=== PATIENT | female | born 1975 | race African-American/Black ===

== ENCOUNTER 2024-07-29 02:13 | Inpatient (IN) | payer OTHER, SELFPAY ==
[2024-07-28 20:38] VITALS: BP 168/102
[2024-07-28 20:44] VITALS: BP 145/76
[2024-07-28 20:49] VITALS: BMI 29.6
[2024-07-28 20:51] VITALS: BP 142/91
[2024-07-28 20:52] LABS: Glucose - Point of Care 155 mg/dl (70-99)
[2024-07-28 20:58] LABS: % Basophils 0.6 % (0-2); % Eosinophils 0.5 % (0-6); % Immature Granulocytes 0.5 % (0-0.5); % Lymphocytes 34.4 % (20.5-51.1); % Monocytes 7.4 % (1.7-9.3); % Neutrophils 56.6 % (42.2-75.2); Absolute Basophils 0.1 10^3/uL (0-0.2); Absolute Lymphocytes 2.7 10^3/uL (1.2-3.4); Absolute Monocytes 0.6 10^3/uL (0.1-0.6); Absolute Neutrophils 4.4 10^3/uL (1.4-6.5); Hematocrit 41.7 % (37.0-47.0); Hemoglobin 13.9 g/dL (12.0-16.0); Mean Corp Hgb Conc. 33.3 g/dL (33.0-37.0); Mean Corpuscular Volume 89.9 fL (81.0-99.0); Mean Platelet Volume 9.6 fL (7.4-10.4); Nucleated Red Blood Cells % 0 %; Platelet Count 219 10^3/uL (130-400); Red Blood Cell Count 4.64 10^6/uL (4.20-5.40); Red Cell Dist. Width 14.7 % (11.5-14.5); White Blood Cell Count 7.8 10^3/uL (4.8-10.8)
[2024-07-28 21:14] LABS: ALT (SGPT) 49 U/L (0-35); AST (SGOT) 40 U/L (14-36); Albumin 4.3 g/dl (3.5-5.0); Alkaline Phosphatase 90 U/L (38-126); Blood Urea Nitrogen 11 mg/dl (7-17); Calcium 8.5 mg/dl (8.4-10.2); Carbon Dioxide 23 mmol/L (22-30); Chloride 100 mmol/L (98-107); Estimated Creatinine Clearance 113 ml/min; Glucose 153 mg/dl (70-99); Magnesium 1.5 mg/dl (1.6-2.3); Potassium 3.8 mmol/L (3.5-5.1); Sodium 137 mmol/L (135-145); Total Bilirubin 0.1 mg/dl (0.2-1.3); Total Protein 7.1 g/dl (6.3-8.2); eGFR > 60.00
[2024-07-28 21:21] LABS: Troponin I < 0.012 ng/ml
[2024-07-28 21:55] LABS: Amphetamines Negative (Negative); Barbiturates Negative (Negative); Benzodiazepines Negative (Negative); Buprenorphine Negative (Negative); Cocaine Negative (Negative); Marijuana Positive (Negative); Methadone Negative (Negative); Methamphetamines Negative (Negative); Opiates Negative (Negative); Phencyclidine Negative (Negative); Tricyclic Antidepressants Negative (Negative)
[2024-07-28 22:00] VITALS: BP 141/84
[2024-07-28 22:15] LABS: Alcohol 75 mg/dl
[2024-07-28 23:00] VITALS: BP 138/73
--- NOTE | 2024-07-28 23:02 | ED.GENMED ---
History of Present Illness
General
Chief Complaint: Numbness
Source: patient
Exam Limitations: none
Time Seen by Provider: 07/28/24 20:36
History of Present Illness
History of Present Illness:
This a 49-year-old female with a history of hypertension diabetes who presents with bilateral upper extremity numbness. The patient states it also involves her right lower extremity that seems to have resolved patient notes only 5 AM. He states
she just did not feel well called out of work. Symptoms persisted. Friend eventually talked her into calling an ambulance. The patient reports symptoms have been persistent. She does report nausea on arrival to the emergency department. EMS did
perform an EKG. Patient denies vision changes. No headache. No injury. No neck pain. No back pain. Patient admits that she is poorly compliant with her metformin. Patient does admit that on Friday she drank '5 shots of alcohol'. She does
states she probably drinks too much. She did not drink any yesterday.
Past History
Past History
ED Past Medical History: HTN and NIDDM
ED Past Surgical History: Gynecological
Social History
Tobacco: Smoker
Alcohol: Daily
Phy Exam
Physical Exam
Physical Exam:
CONSTITUTIONAL Patient alert and oriented to person, place and time. Well-appearing. Vital signs reviewed.
HEAD atraumatic, normocephalic.
EYES eyelids normal to inspection, Extraocular muscles intact, Conjunctiva normal, Sclera normal.
NECK normal range of motion, Trachea midline, no jugular venous distention.
RESPIRATORY CHEST No respiratory distress noted, Chest expansion equal, Bilateral breath sounds clear.
CARDIOVASCULAR regular rate and rhythm, Heart sounds normal.
ABDOMEN abdomen nontender, Bowel sounds normal. No distention.
BACK normal inspection, no obvious deformities
UPPER EXTREMITY range of motion normal, Motor strength normal, no cyanosis, no edema.
LOWER EXTREMITY range of motion normal, Motor strength normal, no cyanosis, no edema.
NEURO Speech normal, No focal motor deficits, [place] coma scale 15, Memory normal, Cranial Nerves intact to screening exam. No pronator drift. Normal [id number].
SKIN skin warm, dry, and normal in color.
Course
Orders/Labs/Results
Orders:
Orders
07/28/24 20:40
Electrocardiogram (*1) Urgent
Reason for Study: Other
Other Reason for Exam: numbness
EKG- Treatment ONCE
07/28/24 20:43
Cardiac Monitoring- Treatment ONCE
07/28/24 20:44
CT Head W/o Iv Contrast Urgent
Comment:
Reason For Exam: R sided numbness
07/28/24 20:50
Alcohol Urgent
Complete Blood Count/With Diff Urgent
Comprehensive Metabolic Panel Urgent
Magnesium Urgent
Troponin I Urgent
07/28/24 21:33
Add On- LAB Urgent
Tests Added?: alcohol
07/28/24 21:37
Urine Drug Abuse Screen Urgent
Date Specimen was Collected: 07/28/24
Time Specimen was Collected: 21:34
Abnormal Lab Results
07/28/24 07/28/24 07/28/24
20:42 20:50 21:37
RDW 14.7 H %
(11.5-14.5)
Creatinine 0.5 L mg/dL
(0.6-1.0)
Glucose 153 H mg/dl
(70-99)
Magnesium 1.5 L mg/dl
(1.6-2.3)
Total Bilirubin 0.1 L mg/dl
(0.2-1.3)
AST 40 H U/L
(14-36)
ALT 49 H U/L
(0-35)
U Marijuana (THC) Screen Positive H
(Negative)
POC Glucose 155 H mg/dl
(70-99)
07/28/24 20:50
07/28/24 20:50
Vital Signs
Initial and Last Documented VS:
Initial Vital Signs
Temp Pulse Resp BP Pulse Ox
99.4 F 87 22 168/102 94
07/28/24 20:38 07/28/24 20:38 07/28/24 20:38 07/28/24 20:38 07/28/24 20:38
Last Documented Vital Signs
Temp Pulse Resp BP Pulse Ox
99.4 F 88 17 141/84 97
07/28/24 20:38 07/28/24 22:45 07/28/24 22:45 07/28/24 22:00 07/28/24 22:45
MDM/Problems Addressed
Differential Diagnosis Includes:
Acute CVA, MS, electrolyte disturbance, alcohol withdrawal, alcohol ketoacidosis
MDM/Problems Addressed:
Sensory changes, numbness, abnormal CT scan, hypomagnesemia, alcohol abuse
*Radiology
Radiology exam reviewed: radiology read reviewed
*Pulse Oximetry
Patient hypoxic: no
*EKG
Interpreted by ED Provider?: Yes
Interpretation: normal
Rate: normal
Rhythm: sinus
[place]: normal axis
Interval: normal interval
Ischemia: no ischemia
*[place]itch[place] Breaker Interpretation
Rate: normal
Interpretation: normal
Rhythm: sinus
*Critical Care Note
Total Time (30-74mins, 75-104mins- exclusive of procedures): 30-minute
Data Reviewed
Source: patient
Prescriptions/Medications Considered But Not Given:
Consider TNK patient has bilateral symptoms symptoms started at 5 AM
Patient Management
Discussion with other providers: Hospitalist and Work Checker (Case discussed with neurology. Recommends MRI and admission in light of CT findings)
Escalation/DeEscalation of care consider admission/obs:
49-year-old female presents bilateral upper extremity numbness. On reassessment she feels like is a little more in her right upper extremity. She has not motor exam. She does admit to drinking too much alcohol and drank a lot on Friday. CT noted
with changes. Case discussed with neurology. Given the bilateral nature of her symptoms I do not suspect CVA. Demyelinating disorder could be on the differential. Also possible to be related to her alcohol use. Treat with banana bag. Neurology
recommends admission and MRI
ED Attending Note
-
Portions of this chart may have been created with voice recognition software.� Occasional wrong word or��sound alike� substitutions may have occurred due to the inherent limitations of voice recognition software.
Discharge Plan
Departure
Patient Disposition: Admit
Date of Disposition: 07/28/24
Time of Disposition: 23:20
Admit to: Telemetry
Presentation/result/management discussed w/ accepting MD/DO: Hospitalist
Discharge Problem:
Alcohol abuse, Numbness, Abnormal CT of brain, Hypomagnesemia
Referrals:
NONE,* [Family Provider] -
Interventions
Interventions:
*General Assessment Last Done: 07/28/24 20:47
ED- Fall Risk Assessment Last Done: 07/28/24 21:51
*ED COVID-19 Vaccine History Last Done: 07/28/24 20:47
ED- Neurological Assessment Last Done: 07/28/24 21:51
Discharge Date and Time
Print Language: OCCITAN
[2024-07-29] VITALS (9 sets, daily range): BP systolic 115–159; BP diastolic 79–93; PULSE 81–96; BMI 28.1
[2024-07-29] MEDS: MULTIVITAMIN 1015 MG IV (00:06)
[2024-07-29] MEDS: MULTIVITAMIN 1015 ML IV (00:06)
[2024-07-29] MEDS: MULTIVITAMIN 1015 GRAMS IV (00:06)
[2024-07-29] MEDS: LOW STRENGTH ASPIRIN 81 MG PO ×2 (00:07→07:49)
--- NOTE | 2024-07-29 02:04 | HPS.HSE ---
Family Physician
-
Family Physician: * NONE
Chief Complaint
-
Paresthesias
History of Present Illness
Patient is a 49y F with PMH significant for hypertension, DM-II and non-compliance who presents to ED complaining of RUE numbness since this AM. Patient states that she felt well yesterday when she went to bed. She woke this Am with numbness
and tingling sensation in the RUE from the shoulder to the hand. The hand has remained numb with occasional 'episodes' of shooting tingling down the outside of the R arm. Patient denies any associated headache, vision changes, speech abnormality.
She denies any specific weakness or clumsiness. She noted some similar numbness in the L hand while here in the ED - but this as brief and has not recurred.
Patient denies any prior history of similar symptoms.
She has prior diagnoses of diabetes and hypertension; however, she does not take her prescribed metformin and telmisartan.
Patient also admits to alcohol use disorder. She states that she drinks 'too much' - estimating about 5-6 drinks per day. Her last drink was Friday.
Medical History
Past Medical History
Past Medical History: Reports Other
Additional Past Medical History:
Hypertension
DM-II
Past Surgical History: Reports Other
Additional Past Surgical History:
Partial Hysterectomy
Social History
Tobacco: Smoker (1/2 ppd)
Alcohol: Daily (5-6 drinks daily. Last drink Friday.)
Drug: Other (Occasional THC edible.)
Family History
Family History: Not pertinent
Allergies / Home Medications
Allergies reflects when Allergies were last updated in [facility].
Home Medications with original date entered in [facility]
Allergy/Medication List:
Allergies
Allergy/AdvReac Type Severity Reaction Status Date / Time
No Known Allergies Allergy Verified 07/28/24 20:38
Home Medications
No Meds [No Current Medications] 07/28/24
Review of Systems
-
History Source: Patient
A 12 point ROS was completed and negative except as noted: Yes
Constitutional: Denies Fever or Chills
EENT: Denies Sore Throat
Respiratory: Denies Cough or Trouble Breathing
Cardiac: Denies Chest Pain or Palpitations
Abdomen/GI: Denies Abdominal Pain, Nausea, Vomiting or Diarrhea
: Denies Dysuria or Frequency
Musculoskeletal: Denies Joint Pain or Edema
Neurological: Reports Numbness; Denies Dizzy, Headache or Weakness
Psych: Denies Depression or Anxiety
Physical Exam
Vital Signs
Vital Signs
Temp Pulse Resp BP Pulse Ox
98.1 F 85 20 128/80 95
07/28/24 23:50 07/29/24 01:33 07/29/24 01:33 07/29/24 01:00 07/29/24 01:15
Physical Exam
General: Other (49y F in no acute distress.)
HEENT: Moist mucous membranes and PERRLA
Respiratory: Clear; No Wheezes, Rales or Rhonchi
Cardiac: S1/S2 and Regular Rhythm; No Murmur
GI: Soft, Non Tender, Non Distended and Normal Bowel Sounds
Musculoskeletal: No Clubbing, No Cyanosis and No Edema
Neuro: AO x 3 and Other (Strength is intact and symmetric. No evident sensory deficit in the RUE.)
Psych: Anxious
Laboratory Results
-
07/28/24 20:50
07/28/24 20:50
Laboratory Results
Total Bilirubin 0.1 mg/dl (0.2-1.3) L 07/28/24 20:50
AST 40 U/L (14-36) H 07/28/24 20:50
ALT 49 U/L (0-35) H 07/28/24 20:50
Alkaline Phosphatase 90 U/L (38-126) 07/28/24 20:50
Troponin I < 0.012 ng/ml 07/28/24 20:50
Impression/Plan
-
A/P: Patient is a 49y F with PMH significant for hypertension and DM-II who presents to ED complaining of RUE paresthesias since this AM.
RUE Numbness
- Admit for further evaluation and treatment.
- ? CVA / TIA versus neuropathy versus other.
- CT head with minimal periventricular white matter changes - no acute abnormality.
- Follow for changes in neuro exam overnight.
- MRI brain and neck in AM.
- Neurology evaluation for additional recommendations.
- Check lipid panel, A1C, etc.
- ASA daily for now.
Alcohol Use Disorder / Alcohol Withdrawal
- Suspect that patient's symptoms are in large part due to alcohol withdrawal.
- History of use disorder with last drink 24-36 hours ago.
- Anxious and somewhat restless in the ED.
- Follow for further evidence of withdrawal and treat with BZDs PRN.
- Thiamine, folate, MVI replacement.
Benign Hypertension
- BP initially elevated on arrival - but has significantly improved since.
- Follow for now without changes.
- Will likely benefit from med regimen prior to discharge if patient is agreeable.
DM-II
- Non-compliant with prescribed metformin secondary to GI effects.
- Check A1C.
- Consider alternate oral agent for glycemic control.
DVT Prophylaxis: SCDs
Code Status: Full
--- NOTE | 2024-07-29 02:50 | PTCARENOTE ---
Pt received from ED to 414-1. Pt oriented to room and call toussaint.
[2024-07-29 03:13] LABS: Vitamin B12 365 pg/ml (239-931)
[2024-07-29 07:42] LABS: Hematocrit 37.2 % (37.0-47.0); Hemoglobin 12.7 g/dL (12.0-16.0); Mean Corp Hgb Conc. 34.1 g/dL (33.0-37.0); Mean Corpuscular Hgb 30.9 pg (27.0-31.0); Mean Corpuscular Volume 90.5 fL (81.0-99.0); Mean Platelet Volume 10.2 fL (7.4-10.4); Platelet Count 199 10^3/uL (130-400); Red Blood Cell Count 4.11 10^6/uL (4.20-5.40); Red Cell Dist. Width 14.4 % (11.5-14.5); White Blood Cell Count 6.6 10^3/uL (4.8-10.8)
[2024-07-29] MEDS: THIAMINE INJECTION 200 MG IV ×3 (07:48→23:27)
[2024-07-29] MEDS: FOLVITE 1 MG PO (07:49)
[2024-07-29] MEDS: VITAMIN B-12 1000 MCG PO (07:49)
--- NOTE | 2024-07-29 07:56 | CON.NEURO ---
Addendum entered and electronically signed by Mis Stewart MD 07/29/24 09:06:
there is no need in Lipitor given LDL level.
Original Note:
Consultation
Order
Date of Consultation: 07/29/24
Requesting Provider: Ronnie Arrieta DO
Reason for Consult: Alcohol withdrawal, paresthesias
Neurology Consultation Note.
HPI: This is a 49-year-old RH woman who presented to [facility] on 07/28/2022 for with sensory symptoms. According to the patient she developed an acute numbness in the right face and arm/hand that started around 5 AM on 07/28/2024.
The patient states that her face and arm numbness lasted for several seconds however right hand numbness (all digits) has been persistent. The patient states that her right arm felt heavy/' denied and she use her left hand to 'shake'. No reports
of radicular neck pain, headaches, change in vision, abnormal movements, change in speech or language.
Ms. Lyons states that she had a seizure several years ago in settings of electrolyte abnormalities secondary to C. difficile infection had [facility].
ER VS: 168/102, 87�105, febrile.
EKG:NSR, QTc Int : 462 ms
PDMP: none
Labs: Glucose�153, magnesium�1.5, normal WBCs, sodium, platelets, vitamin B12�365, TSH�normal, urine tox�positive for THC, LDL 34, hemoglobin A1c�8.0
CT head wo contrast�subcortical and periventricular bilateral parietal hypodensities.
MAR: ASA 81 mg, hemoglobin 7 mcg, folic acid 1 mg, Mg So4, thiamine IV 200 mg�once
PMH: HTN, DM, nonadherence
PSH: Partial hysterectomy,
SH: Lives with roommate, has a daughter, works as a 'at a local hotel, active smoker, daily alcohol user,
FH: Mother at the age of 74 from a cancer, father at the age of 63 from coronary artery disease.
All:NKDA
ROS:Constitutional: Negative. Negative for chills, fever and unexpected weight change.
HENT: Negative for ear pain, hearing loss, tinnitus and trouble swallowing.
Eyes: Negative. Negative for photophobia, pain and visual disturbance.
Respiratory: Negative for cough, choking and shortness of breath.
Cardiovascular: Negative for chest pain, palpitations and leg swelling.
Gastrointestinal: Negative for abdominal pain and vomiting.
Endocrine: Negative. Negative for cold intolerance.
Genitourinary: Negative for dysuria, flank pain and urgency.
Musculoskeletal: Negative for back pain, gait problem, neck pain and neck stiffness.
Skin: Negative for rash.
Allergic/Immunologic: Negative. Negative for immunocompromised state.
Neurological: Positive for numbness in the right hand
Psychiatric/Behavioral: Negative for behavioral problems, confusion and hallucinations.
General: Well developed. In no acute distress.
Cardio: Regular rate and rhythm without murmur. Extremities are without cyanosis or edema.
Neuro:
Mental Status: Alert, oriented to person, place, and date. Normal attention and recall. Good fund of knowledge. Follows complex requests across the midline. Comprehension, naming, and repetition intact. Immediate and delayed recall 3/3.
Cranial Nerves: . Pupils are equally round and reactive to light. EOMs full. Visual waller full to confrontation. No ptosis. No nystagmus. V1-V3 intact to light touch and pinprick bilaterally, symmetric. Face symmetric. Normal hearing AU.
The palate elevated well. SCMs and traps 5/5. Tongue midline. No dysarthria.
Motor: Normal bulk and tone. No pronator or arm drift. Strength 5/5 throughout. No clonus.
Reflexes: 2+ throughout the upper extremities and knees. Plantar responses flexor bilaterally.
Sensory: Normal pinprick, vibration and JPS.
Coordination: No dysmetria or tremor.
Gait: deferred
Assessment and Plan:
I. Left thalamic syndrome. Differential diagnosis includes vascular versus demyelinating, less likely inflammatory, infectious or neoplastic.
II. EtOH addiction
III. HTN
-Continue Telemetry monitoring.
-Strict glycemic control
-Brain MRI without ute
-TTE with bubble studies
-Continue aspirin 81 mg once a day and start Plavix 75 once a day
-Lipitor 40 mg QHS.
-Nicotine patch
-DVT prophylaxis.
I personally reviewed all radiology and labs along with past medical records pertinent to current medical problems. Total time spent in patient care is 60 minutes.
Thank you for allowing us to participate in the care of this patient. We will continue to follow. Please do not hesitate to contact us with any questions or concerns.
Subjective/Objective
Subjective Data
Date of Service: July 29, 2024
Objective Data
Vital Signs
Temp Pulse Resp BP Pulse Ox
36.8 C 95 18 144/83 97
07/29/24 03:20 07/29/24 02:30 07/29/24 03:20 07/29/24 02:00 07/29/24 03:20
Lab Results
07/29/24 06:22
Sodium 137 mmol/L (135-145) 07/28/24 20:50
Potassium 3.8 mmol/L (3.5-5.1) 07/28/24 20:50
BUN 11 mg/dl (7-17) 07/28/24 20:50
Glucose 153 mg/dl (70-99) H 07/28/24 20:50
Calcium 8.5 mg/dl (8.4-10.2) 07/28/24 20:50
Vitamin B12 365 pg/ml (239-931) 07/28/24 20:50
Ur Buprenorphine Negative (Negative) 07/28/24 21:37
Patient Allergies
No Known Allergies Allergy (Verified 07/28/24 20:38)
Medications
-
Active Medications
Generic Name Dose Route Start Last Admin
Trade Name Freq PRN Reason Stop Dose Admin
Acetaminophen 650 mg 07/29/24 02:50
Acetaminophen 325 Mg Tablet PO 08/26/24 02:49
Q4HPRN PRN
Mild Pain / Temp > 101
Aspirin 81 mg 07/29/24 08:00 07/29/24 07:49
Aspirin 81 Mg Chewable Tablet PO 08/26/24 07:59 81 mg
DAILY ARNIE Administration
Cyanocobalamin 1,000 mcg 07/29/24 08:00 07/29/24 07:49
Cyanocobalamin 1,000 Mcg Tablet PO 08/26/24 07:59 1,000 mcg
DAILY ARNIE Administration
Dextrose 12.5 grams 07/29/24 07:29
Dextrose 50% (0.5 Grams/Ml) 50 Ml Syringe IV 08/26/24 07:28
[id number] PRN
hypoglycemia
Protocol
Folic Acid 1 mg 07/29/24 08:00 07/29/24 07:49
Folic Acid 1 Mg Tablet PO 08/26/24 07:59 1 mg
DAILY ARNIE Administration
Glucagon 1 mg 07/29/24 07:29
Glucagon 1 Mg Vial IM 08/26/24 07:28
PRN PRN
hypoglycemia
Protocol
Lactated Ringer's 1,000 mls @ 125 mls/hr 07/29/24 02:50
Lr IV
.Q8H ARNIE
Folic Acid 1 mg/ Sodium 50.2 mls @ 200.8 mls/hr 07/29/24 02:50
Chloride IV 08/26/24 02:49
DAILYPRN PRN
if NPO
Insulin Aspart 0 units 07/29/24 07:30
Insulin Aspart Low Resistance 300 Units/3 Ml Pen.Injctr SC 08/26/24 07:29
AC ARNIE
Protocol
Lorazepam 1 mg 07/29/24 02:50
Lorazepam 1 Mg Tablet PO 08/26/24 02:49
Q2HPRN PRN
MSAS 5-7
Lorazepam 1 mg 07/29/24 02:50
Lorazepam 2 Mg/Ml Vial IV 08/26/24 02:49
Q1HPRN PRN
MSAS 8-11
Lorazepam 2 mg 07/29/24 02:50
Lorazepam 2 Mg/Ml Vial IV 08/26/24 02:49
Q1HPRN PRN
MSAS > 11
Ondansetron HCl 4 mg 07/29/24 02:50
Ondansetron 4 Mg/2 Ml Vial IV 08/26/24 02:49
Q6HPRN PRN
nausea and vomiting
Sodium Chloride 0 flush 07/28/24 23:00
Sodium Chloride 0.9% (Flush) Syringe IV 08/25/24 22:59
PER PROTOCOL ARNIE
Sodium Chloride 0 ml 07/29/24 02:50
Sodium Chloride 0.9% (Preservative Free) 10 Ml Vial IV 08/26/24 02:49
PRN PRN
To dilute IV Ativan
Protocol
Thiamine HCl 200 mg 07/29/24 08:00 07/29/24 07:48
Thiamine (100 Mg/Ml) 2 Ml Vial IV 08/01/24 00:01 200 mg
Q8 ARNIE Administration
Thiamine HCl 100 mg 08/01/24 08:00
Thiamine 100 Mg Tablet PO 08/29/24 07:59
BID ARNIE
Home Medications
�Medication �Instructions �Recorded
No Meds [No Current Medications] 07/28/24
Vital Signs and Labs
-
Vital Signs and Labs:
Vital Signs
Temp Pulse Resp BP Pulse Ox
36.8 C 95 18 144/83 97
07/29/24 03:20 07/29/24 02:30 07/29/24 03:20 07/29/24 02:00 07/29/24 03:20
Lab Results
07/29/24 06:22
Sodium 137 mmol/L (135-145) 07/28/24 20:50
Potassium 3.8 mmol/L (3.5-5.1) 07/28/24 20:50
BUN 11 mg/dl (7-17) 07/28/24 20:50
Glucose 153 mg/dl (70-99) H 07/28/24 20:50
Calcium 8.5 mg/dl (8.4-10.2) 07/28/24 20:50
Vitamin B12 365 pg/ml (239-931) 07/28/24 20:50
Ur Buprenorphine Negative (Negative) 07/28/24 21:37
Medications
-
Medications:
Generic Name Dose Route Start Last Admin
Trade Name Freq PRN Reason Stop Dose Admin
Acetaminophen 650 mg 07/29/24 02:50
Acetaminophen 325 Mg Tablet PO 08/26/24 02:49
Q4HPRN PRN
Mild Pain / Temp > 101
Aspirin 81 mg 07/29/24 08:00 07/29/24 07:49
Aspirin 81 Mg Chewable Tablet PO 08/26/24 07:59 81 mg
DAILY ARNIE Administration
Cyanocobalamin 1,000 mcg 07/29/24 08:00 07/29/24 07:49
Cyanocobalamin 1,000 Mcg Tablet PO 08/26/24 07:59 1,000 mcg
DAILY ARNIE Administration
Dextrose 12.5 grams 07/29/24 07:29
Dextrose 50% (0.5 Grams/Ml) 50 Ml Syringe IV 08/26/24 07:28
[id number] PRN
hypoglycemia
Protocol
Folic Acid 1 mg 07/29/24 08:00 07/29/24 07:49
Folic Acid 1 Mg Tablet PO 08/26/24 07:59 1 mg
DAILY ARNIE Administration
Glucagon 1 mg 07/29/24 07:29
Glucagon 1 Mg Vial IM 08/26/24 07:28
PRN PRN
hypoglycemia
Protocol
Lactated Ringer's 1,000 mls @ 125 mls/hr 07/29/24 02:50
Lr IV
.Q8H ARNIE
Folic Acid 1 mg/ Sodium 50.2 mls @ 200.8 mls/hr 07/29/24 02:50
Chloride IV 08/26/24 02:49
DAILYPRN PRN
if NPO
Insulin Aspart 0 units 07/29/24 07:30
Insulin Aspart Low Resistance 300 Units/3 Ml Pen.Injctr SC 08/26/24 07:29
AC ARNIE
Protocol
Lorazepam 1 mg 07/29/24 02:50
Lorazepam 1 Mg Tablet PO 08/26/24 02:49
Q2HPRN PRN
MSAS 5-7
Lorazepam 1 mg 07/29/24 02:50
Lorazepam 2 Mg/Ml Vial IV 08/26/24 02:49
Q1HPRN PRN
MSAS 8-11
Lorazepam 2 mg 07/29/24 02:50
Lorazepam 2 Mg/Ml Vial IV 08/26/24 02:49
Q1HPRN PRN
MSAS > 11
Ondansetron HCl 4 mg 07/29/24 02:50
Ondansetron 4 Mg/2 Ml Vial IV 08/26/24 02:49
Q6HPRN PRN
nausea and vomiting
Sodium Chloride 0 flush 07/28/24 23:00
Sodium Chloride 0.9% (Flush) Syringe IV 08/25/24 22:59
PER PROTOCOL ARNIE
Sodium Chloride 0 ml 07/29/24 02:50
Sodium Chloride 0.9% (Preservative Free) 10 Ml Vial IV 08/26/24 02:49
PRN PRN
To dilute IV Ativan
Protocol
Thiamine HCl 200 mg 07/29/24 08:00 07/29/24 07:48
Thiamine (100 Mg/Ml) 2 Ml Vial IV 08/01/24 00:01 200 mg
Q8 ARNIE Administration
Thiamine HCl 100 mg 08/01/24 08:00
Thiamine 100 Mg Tablet PO 08/29/24 07:59
BID ARNIE
Home Medications
-
Home Medications
No Meds [No Current Medications] 07/28/24
[2024-07-29 08:02] LABS: Blood Urea Nitrogen 10 mg/dl (7-17); Calcium 7.9 mg/dl (8.4-10.2); Carbon Dioxide 26 mmol/L (22-30); Chloride 100 mmol/L (98-107); Estimated Creatinine Clearance 111 ml/min; Glucose 96 mg/dl (70-99); HDL Cholesterol 108 mg/dl; LDL Cholesterol, Calculated 34 mg/dl; Potassium 3.3 mmol/L (3.5-5.1); Sodium 135 mmol/L (135-145); Total Cholesterol 169 mg/dl (50-199); Triglyceride 135 mg/dl (10-149); Very Low Density Lipoprotein 27 mg/dl (0-30); eGFR > 60.00
[2024-07-29 08:03] LABS: Glucose - Point of Care 109 mg/dl (70-99)
[2024-07-29] MEDS: KCL 40 MEQ PO (08:07)
[2024-07-29] MEDS: NOVOLOG FLEXPEN-LOW RESISTANCE SC (08:12)
[2024-07-29 08:19] LABS: Magnesium 2.1 mg/dl (1.6-2.3); Phosphorus 3.3 mg/dl (2.5-4.5)
[2024-07-29 08:24] LABS: TSH Reflex To Free T4 0.76 uIU/ml (0.47-4.68)
[2024-07-29] MEDS: PLAVIX 75 MG PO (09:06)
[2024-07-29] MEDS: LR 1000 IV (09:06)
--- NOTE | 2024-07-29 11:29 | W.PN.UPDATE ---
Update Note
Progress Note Update
seen and examined independent of overnight physician. Non billable note. states of persistent numbing in RUE. No neck pain. No trauma. No headache. No left upper extremity weakness. No lower extremity weakness. Denies any prior events of
similar symptomology.
General: Other (49y F in no acute distress.)
HEENT: Moist mucous membranes and PERRLA
Respiratory: Clear; No Wheezes, Rales or Rhonchi
Cardiac: S1/S2 and Regular Rhythm; No Murmur
GI: Soft, Non Tender, Non Distended and Normal Bowel Sounds
Musculoskeletal: No Clubbing, No Cyanosis and No Edema
Neuro: AO x 3 and Other (Strength is intact and symmetric. No evident sensory deficit in the RUE.)
Psych: Anxious
A/P: Patient is a 49y F with PMH significant for hypertension and DM-II who presents to ED complaining of RUE paresthesias since this AM.
RUE Numbness
- ? CVA / TIA versus neuropathy due to alcohol abuse versus uncontrolled hypertension versus tobacco abuse versus cervical radiculopathy
- CT head with minimal periventricular white matter changes - no acute abnormality.
- Follow for changes in neuro exam overnight.
- MRI brain and neck in AM.
- Neurology evaluation for additional recommendations.
- ASA and plavix added per neurology.
Alcohol Use Disorder / Alcohol Withdrawal
- History of use disorder with last drink 24-36 hours ago. Alcohol level was elevated on admission. UDS + THC
- Anxious and somewhat restless in the ED.
- Follow for further evidence of withdrawal and treat with BZDs PRN.
- Thiamine, folate, MVI replacement.
Benign Hypertension
- Follow for now without changes.
- Will likely benefit from med regimen PENDING MRI results.
DM-II
- Non-compliant with prescribed metformin secondary to GI effects.
- A1C at 8.1
Tobacco abuse
-smokes a pack in 72h or so.
DVT Prophylaxis: SCDs
Code Status: Full
[2024-07-29 11:50] LABS: Glucose - Point of Care 177 mg/dl (70-99)
[2024-07-29] MEDS: LR IV (12:06)
[2024-07-29] MEDS: NOVOLOG FLEXPEN-LOW RESISTANCE 1 UNITS SC (12:46)
--- NOTE | 2024-07-29 15:13 | CM ---
Pt seen bedside. Initial assessment.
Pt rents a room in a [facility]ST[address]-1 step to enter. Lives w/ landlord. 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
Pt is independent, denies the use of DME for ambulating or daily functioning
Denies SNF/VN/MANAGER CCU hx.
Address and point of contact verified. Pt does not have any insurance at this time. Pt stated she has to figure out how to reinstate her insurance as she was unaware it was inactive.
At this time, pt does not have an assigned PCP
Pharmacy: [facility]
CM discussed D&A per chart states pt drinks daily and disclosure of alcohol use disorder. Pt stated she does not need any support or resources at this time. CM encouraged pt to let CM know if she changes her mind at a later time.
Plan: Home; no needs anticipated
[2024-07-29] MEDS: SOLU-MEDROL 258 MG IV (15:15)
[2024-07-29 16:39] LABS: Erythrocyte Sed Rate 18 mm/hour (0-20)
[2024-07-29 16:46] LABS: Glucose - Point of Care 245 mg/dl (70-99)
[2024-07-29] MEDS: NOVOLOG FLEXPEN-LOW RESISTANCE 2 UNITS SC (16:49)
[2024-07-29 21:18] LABS: Glucose - Point of Care 339 mg/dl (70-99)
[2024-07-30] VITALS (7 sets, daily range): BP systolic 119–157; BP diastolic 71–98; PULSE 68–70
[2024-07-30 07:04] LABS: Glucose - Point of Care 304 mg/dl (70-99)
[2024-07-30] MEDS: NOVOLOG FLEXPEN-LOW RESISTANCE 4 UNITS SC (08:20)
[2024-07-30] MEDS: FOLVITE 1 MG PO (08:21)
[2024-07-30] MEDS: THIAMINE INJECTION 200 MG IV ×3 (08:21→23:54)
[2024-07-30] MEDS: VITAMIN B-12 1000 MCG PO (08:21)
[2024-07-30 08:27] LABS: INR 0.95
[2024-07-30 09:02] LABS: ALT (SGPT) 38 U/L (0-35); AST (SGOT) 23 U/L (14-36); Albumin 4.4 g/dl (3.5-5.0); Alkaline Phosphatase 79 U/L (38-126); Blood Urea Nitrogen 13 mg/dl (7-17); Calcium 9.2 mg/dl (8.4-10.2); Carbon Dioxide 18 mmol/L (22-30); Chloride 97 mmol/L (98-107); Estimated Creatinine Clearance 111 ml/min; Glucose 294 mg/dl (70-99); Magnesium 2.1 mg/dl (1.6-2.3); Potassium 4.9 mmol/L (3.5-5.1); Sodium 131 mmol/L (135-145); Total Bilirubin 0.5 mg/dl (0.2-1.3); Total Protein 7.4 g/dl (6.3-8.2); eGFR > 60.00
--- NOTE | 2024-07-30 09:14 | W.PN.NEURO.1 ---
Today's Communication / Plan
-
.
Subjective/Objective
Subjective Data
Date of Service: July 30, 2024
Neurology follow-up note.
This Eloy reports improvement of her right hand numbness. Blood pressure has been intermittently elevated. No tachycardia. No reports of tremors, headaches or change in vision.
Brain MRI w/wo ute showed nonenhancing periventricular juxtacortical T2/FLAIR hyperintense.
C-spine MRI w/wo ute C3-C4 and C3-C4 level report hyperintensity with subtle enhancement at the level of C3-C4, mild C4-C5, C5-C6 DJD.
Degenerative changes at C4-5 and C5-6 with mild spinal canal stenosis at these levels and jtao-za-[id number] bilateral neural foraminal stenosis at C5-6.
Labs: Glucose�304.
PMH: HTN, DM, nonadherence
PSH: Partial hysterectomy,
SH: Lives with roommate, has a daughter, works as a 'at a [employer], active smoker, daily alcohol user,
FH: Mother at the age of 74 from a cancer, father at the age of 63 from coronary artery disease.
All:NKDA
ROS:Constitutional: Negative. Negative for chills, fever and unexpected weight change.
HENT: Negative for ear pain, hearing loss, tinnitus and trouble swallowing.
Eyes: Negative. Negative for photophobia, pain and visual disturbance.
Respiratory: Negative for cough, choking and shortness of breath.
Cardiovascular: Negative for chest pain, palpitations and leg swelling.
Gastrointestinal: Negative for abdominal pain and vomiting.
Endocrine: Negative. Negative for cold intolerance.
Genitourinary: Negative for dysuria, flank pain and urgency.
Musculoskeletal: Negative for back pain, gait problem, neck pain and neck stiffness.
Skin: Negative for rash.
Allergic/Immunologic: Negative. Negative for immunocompromised state.
Neurological: Positive for numbness in the right hand
Psychiatric/Behavioral: Negative for behavioral problems, confusion and hallucinations.
General: Well developed. In no acute distress.
Cardio: Regular rate and rhythm without murmur. Extremities are without cyanosis or edema.
Neuro:
Mental Status: Alert, oriented to person, place, and date. Normal attention and recall. Good fund of knowledge. Follows complex requests across the midline. Comprehension, naming, and repetition intact. Immediate and delayed recall 3/3.
Cranial Nerves: . Pupils are equally round and reactive to light. EOMs full. Visual waller full to confrontation. No ptosis. No nystagmus. V1-V3 intact to light touch and pinprick bilaterally, symmetric. Face symmetric. Normal hearing AU.
The palate elevated well. SCMs and traps 5/5. Tongue midline. No dysarthria.
Motor: Normal bulk and tone. No pronator or arm drift. Strength 5/5 throughout. No clonus.
Reflexes: 2+ throughout the upper extremities and 0knees. Plantar responses flexor bilaterally. Ladonna's�negative bilateral
Sensory: Normal vibration at the toes.
Coordination: No dysmetria or tremor.
Gait: deferred
Assessment and Plan:
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
II. EtOH addiction
III. HTN
-Continue Telemetry monitoring.
-Strict glycemic control
-D/C steroids
-CSF studies(OCB, MBP)
-MS mimickers
-T-spine MRI with and without gadolinium
-DVT prophylaxis.
I personally reviewed all radiology and labs along with past medical records pertinent to current medical problems. Total time spent in patient care is 35 minutes.
Thank you for allowing us to participate in the care of this patient. We will continue to follow. Please do not hesitate to contact us with any questions or concerns.
Objective Data
Vital Signs
Temp Pulse Resp BP Pulse Ox
36.4 C 71 16 140/80 96
07/30/24 07:00 07/30/24 07:00 07/30/24 07:00 07/30/24 07:00 07/30/24 07:00
Lab Results
07/29/24 06:22
07/30/24 07:14
PT 13.0 Sec (11.4-14.6) 07/30/24 07:32
INR 0.95 07/30/24 07:32
Sodium 131 mmol/L (135-145) L 07/30/24 07:14
Potassium 4.9 mmol/L (3.5-5.1) D 07/30/24 07:14
BUN 13 mg/dl (7-17) 07/30/24 07:14
Glucose 294 mg/dl (70-99) H 07/30/24 07:14
Calcium 9.2 mg/dl (8.4-10.2) 07/30/24 07:14
Phosphorus 3.3 mg/dl (2.5-4.5) 07/29/24 06:22
LDL Cholesterol, Calc 34 mg/dl 07/29/24 06:22
Vitamin B12 365 pg/ml (239-931) 07/28/24 20:50
Ur Buprenorphine Negative (Negative) 07/28/24 21:37
Patient Allergies
No Known Allergies Allergy (Verified 07/28/24 20:38)
Vital Signs and Labs
-
Vital Signs and Labs:
Vital Signs
Temp Pulse Resp BP Pulse Ox
36.4 C 71 16 140/80 96
07/30/24 07:00 07/30/24 07:00 07/30/24 07:00 07/30/24 07:00 07/30/24 07:00
Lab Results
07/29/24 06:22
07/30/24 07:14
PT 13.0 Sec (11.4-14.6) 07/30/24 07:32
INR 0.95 07/30/24 07:32
Sodium 131 mmol/L (135-145) L 07/30/24 07:14
Potassium 4.9 mmol/L (3.5-5.1) D 07/30/24 07:14
BUN 13 mg/dl (7-17) 07/30/24 07:14
Glucose 294 mg/dl (70-99) H 07/30/24 07:14
Calcium 9.2 mg/dl (8.4-10.2) 07/30/24 07:14
Phosphorus 3.3 mg/dl (2.5-4.5) 07/29/24 06:22
LDL Cholesterol, Calc 34 mg/dl 07/29/24 06:22
Vitamin B12 365 pg/ml (239-931) 07/28/24 20:50
Ur Buprenorphine Negative (Negative) 07/28/24 21:37
Medications
-
Medications:
Generic Name Dose Route Start Last Admin
Trade Name Freq PRN Reason Stop Dose Admin
Acetaminophen 650 mg 07/29/24 02:50
Acetaminophen 325 Mg Tablet PO 08/26/24 02:49
Q4HPRN PRN
Mild Pain / Temp > 101
Cyanocobalamin 1,000 mcg 07/29/24 08:00 07/30/24 08:21
Cyanocobalamin 1,000 Mcg Tablet PO 08/26/24 07:59 1,000 mcg
DAILY ARNIE Administration
Dextrose 12.5 grams 07/29/24 07:29
Dextrose 50% (0.5 Grams/Ml) 50 Ml Syringe IV 08/26/24 07:28
[id number] PRN
hypoglycemia
Protocol
Folic Acid 1 mg 07/29/24 08:00 07/30/24 08:21
Folic Acid 1 Mg Tablet PO 08/26/24 07:59 1 mg
DAILY ARNIE Administration
Glucagon 1 mg 07/29/24 07:29
Glucagon 1 Mg Vial IM 08/26/24 07:28
PRN PRN
hypoglycemia
Protocol
Folic Acid 1 mg/ Sodium 50.2 mls @ 200.8 mls/hr 07/29/24 02:50
Chloride IV 08/26/24 02:49
DAILYPRN PRN
if NPO
Insulin Aspart 0 units 07/29/24 07:30 07/30/24 08:20
Insulin Aspart Low Resistance 300 Units/3 Ml Pen.Injctr SC 08/26/24 07:29 4 units
AC ARNIE Administration
Protocol
Lorazepam 1 mg 07/29/24 02:50
Lorazepam 1 Mg Tablet PO 08/26/24 02:49
Q2HPRN PRN
MSAS 5-7
Lorazepam 1 mg 07/29/24 02:50
Lorazepam 2 Mg/Ml Vial IV 08/26/24 02:49
Q1HPRN PRN
MSAS 8-11
Lorazepam 2 mg 07/29/24 02:50
Lorazepam 2 Mg/Ml Vial IV 08/26/24 02:49
Q1HPRN PRN
MSAS > 11
Ondansetron HCl 4 mg 07/29/24 02:50
Ondansetron 4 Mg/2 Ml Vial IV 08/26/24 02:49
Q6HPRN PRN
nausea and vomiting
Sodium Chloride 0 flush 07/28/24 23:00
Sodium Chloride 0.9% (Flush) Syringe IV 08/25/24 22:59
PER PROTOCOL ARNIE
Sodium Chloride 0 ml 07/29/24 02:50
Sodium Chloride 0.9% (Preservative Free) 10 Ml Vial IV 08/26/24 02:49
PRN PRN
To dilute IV Ativan
Protocol
Thiamine HCl 200 mg 07/29/24 08:00 07/30/24 08:21
Thiamine (100 Mg/Ml) 2 Ml Vial IV 08/01/24 00:01 200 mg
Q8 ARNIE Administration
Thiamine HCl 100 mg 08/01/24 08:00
Thiamine 100 Mg Tablet PO 08/29/24 07:59
BID ARNIE
Home Medications
-
Home Medications
No Meds [No Current Medications] 07/28/24
--- NOTE | 2024-07-30 10:41 | PN.CDI ---
CDI
- -
CDI:
Physician Documentation Request
Admit Date: 07/29/24 02:13
Dear Doctor Thomas,
Clinical Indicators:
Patient admitted with RUE numbness and alcohol withdrawal
07/29 KCL 40 meq PO x 1.
Potassium level:
07/29/24
06:22
Potassium 3.3 L
Based on the above, could you clarify in the progress notes, the appropriate diagnosis, if significant, that supports the above abnormalities and additional evaluation, monitoring and/or treatment rendered:
Hypokalemia
Abnormal lab value, clinically insignificant
Other
Use of terms such as suspected, likely, concern for, or probable (associated with a specific diagnosis that is being evaluated, monitored, or treated as if it exists) are acceptable and can be coded in the inpatient setting, when documented at the
time of discharge.
Thank you,
Rhona Garcia RN BSN
CDI Specialist
available via tiger text
Please use your independent medical judgment in providing your response.
--- NOTE | 2024-07-30 11:41 | W.PN.HOSP.TC ---
Today's Communication/Plan
-
start BP meds
Start glipizde
MR thoraic spine
Assessment / Plan
Assessment / Plan
General: Other (49y F in no acute distress.)
HEENT: Moist mucous membranes and PERRLA
Respiratory: Clear; No Wheezes, Rales or Rhonchi
Cardiac: S1/S2 and Regular Rhythm; No Murmur
GI: Soft, Non Tender, Non Distended and Normal Bowel Sounds
Musculoskeletal: No Clubbing, No Cyanosis and No Edema
Neuro: AO x 3 and Other (Strength is intact and symmetric. No evident sensory deficit in the RUE.)
Psych: Anxious
A/P: Patient is a 49y F with PMH significant for hypertension and DM-II who presents to ED complaining of RUE paresthesias since this AM.
RUE Numbness likely secondary to demyelinating disease suspected multiple sclerosis
- CT head with minimal periventricular white matter changes - no acute abnormality.
- Neurology evaluation for additional recommendations.
- ASA and plavix stopped.
- MR C spine showing-STIR hyperintense cervical cord lesions as described, suspicious for multiple sclerosis. Suspect small amount of enhancement of one of the lesions suggesting a component of active disease. Degenerative changes at C4-5 and C5-6
with mild spinal canal stenosis at these levels and fgac-go-tchjzvgh bilateral neural foraminal stenosis at C5-6.
- MR Brain Moderate T2/FLAIR hyperintense foci within the periventricular and deep subcortical white matter in a pattern most in keeping with demyelinating disease/multiple sclerosis. No evidence for active intracranial disease.
- IV steroids stopped per neurology.
- Await MR Thoraic spine
- Await IRAD recs for LP (received asa/plavix yesterday)
Alcohol Use Disorder / Alcohol Withdrawal
- History of use disorder with last drink 24-36 hours ago. Alcohol level was elevated on admission. UDS + THC
- Anxious and somewhat restless in the ED.
- Follow for further evidence of withdrawal and treat with BZDs PRN.
- Thiamine, folate, MVI replacement.
Benign Hypertension
- Follow for now without changes.
- started losartan
DM-II
- Non-compliant with prescribed metformin secondary to GI effects.
- A1C at 8.1. Start low dose glipizide
- Diabetes education
Tobacco abuse
-smokes a pack in 72h or so.
DVT Prophylaxis: SCDs
Code Status: Full
Anticipated Discharge: 24 - 48 hours
Subjective/Interval History
-
Date of Service: July 30, 2024
States remains wtih RUE tingling sensation
She is right handed
Objective Data
-
Labs:
Laboratory Results
07/30/24 07/30/24
07:14 07:32
PT 13.0
INR 0.95
Sodium 131 L
Potassium 4.9 D
Chloride 97 L
Carbon Dioxide 18 L
BUN 13
Creatinine 0.6
Glucose 294 H
Calcium 9.2
Total Bilirubin 0.5
AST 23
ALT 38 H
Alkaline Phosphatase 79
Vital Signs:
Vital Signs
Temp Pulse Resp BP Pulse Ox
97.6 F 71 16 140/80 96
07/30/24 07:00 07/30/24 07:00 07/30/24 07:00 07/30/24 07:00 07/30/24 07:00
I&O
07/29/24 07/30/24 07/31/24
06:59 06:59 06:59
Intake Total 840 / 840 2459 / 2459
Balance 840 / 840 2459 / 2459
Data Reviewed
-
Total Time Spent with Patient (in minutes): 55
[2024-07-30 12:19] LABS: Glucose - Point of Care 228 mg/dl (70-99)
[2024-07-30] MEDS: NOVOLOG FLEXPEN-LOW RESISTANCE 2 UNITS SC (12:45)
[2024-07-30] MEDS: COZAAR 25 MG PO (12:45)
--- NOTE | 2024-07-30 15:20 | PTCARENOTE ---
Benita verbalized she has had type 2 diabetes for the past year and was started on Metformin. She had persistent GI side effects and discontinued the medication on her own. She also left her primary care doctor who prescribed the Metformin. She
verbalized she has not had any formal diabetes education but both her parents had type 2 diabetes. We reviewed her goal for the hemolgobin A1c and reinforced importance of keeping blood sugars under control. I discussed nutrition and exercise and
encouraged her to attend the outpatient DSME program and gave her a flyer with contact information. Benita was started on steroids for 1 day since being admitted but since have been discontinued. Plan is for her to start Glipizide 2.5 mg twice daily.
I reviewed the action of the medication as well as potential low blood sugar recognition and treatment. Benita demonstrated how to check a fingerstick and we reviewed a monitoring schedule. She will reach out to the office for further assistance if
needed.
[2024-07-30 16:37] LABS: Glucose - Point of Care 264 mg/dl (70-99)
[2024-07-30] MEDS: NOVOLOG FLEXPEN-LOW RESISTANCE 3 UNITS SC (18:16)
[2024-07-30] MEDS: GLUCOTROL 2.5 MG PO (18:38)
[2024-07-30 21:32] LABS: Glucose - Point of Care 256 mg/dl (70-99)
[2024-07-31 03:43] VITALS: BP 99/57
[2024-07-31 07:00] VITALS: BP 121/71
[2024-07-31 07:12] LABS: Glucose - Point of Care 186 mg/dl (70-99)
[2024-07-31] MEDS: NOVOLOG FLEXPEN-LOW RESISTANCE 1 UNITS SC (08:06)
[2024-07-31] MEDS: GLUCOTROL 2.5 MG PO ×2 (08:06→16:15)
[2024-07-31] MEDS: COZAAR 25 MG PO (08:07)
[2024-07-31] MEDS: VITAMIN B-12 1000 MCG PO (08:07)
[2024-07-31] MEDS: FOLVITE 1 MG PO (08:07)
[2024-07-31] MEDS: THIAMINE INJECTION 200 MG IV ×3 (08:08→22:28)
--- NOTE | 2024-07-31 08:10 | W.PN.NEURO.1 ---
Addendum entered and electronically signed by Bharat Chicas MD 07/31/24 12:08:
Smoking cessation consulted
Original Note:
Today's Communication / Plan
-
Restart high-dose steroids due to enhancing lesion in the spinal cord and persistent symptomatology,
Check blood work for potential mimics for causes
Aggressive blood pressure control
Lumbar puncture to ensure no mimickers
Goal of normotension
continue B12 replacement
Continue Thiamine
Neuro Assessment/Plan
Assessment
Brain MRI w/wo ute showed nonenhancing periventricular juxtacortical T2/FLAIR hyperintensities.
C-spine MRI w/wo ute subtle enhancement at the level of C3-C4, mild C4-C5
Thoracic spine MRI with and without gadolinium was unremarkable
Assessment:
I. Probable SIGNAL INSPECTOR demyelinating disease
II. EtOH abuse
III. HTN
Low vitamin B12 level
Plan
Restart high-dose steroids due to enhancing lesion in the spinal cord and persistent symptomatology,
Check blood work for potential mimics for causes
Aggressive blood pressure control
Lumbar puncture to ensure no mimickers of multiple sclerosis (an inflammatory process)
Goal of normotension
continue B12 replacement
Continue Thiamine
We will follow.
Subjective/Objective
Subjective Data
Date of Service: July 31, 2024
Improved, continued right hand sensation change.
Objective Data
Vital Signs
Temp Pulse Resp BP Pulse Ox
36.6 C 71 18 99/57 97
07/31/24 03:43 07/31/24 03:43 07/31/24 03:43 07/31/24 03:43 07/31/24 03:43
Lab Results
07/29/24 06:22
07/30/24 07:14
PT 13.0 Sec (11.4-14.6) 07/30/24 07:32
INR 0.95 07/30/24 07:32
Sodium 131 mmol/L (135-145) L 07/30/24 07:14
Potassium 4.9 mmol/L (3.5-5.1) D 07/30/24 07:14
BUN 13 mg/dl (7-17) 07/30/24 07:14
Glucose 294 mg/dl (70-99) H 07/30/24 07:14
Calcium 9.2 mg/dl (8.4-10.2) 07/30/24 07:14
Phosphorus 3.3 mg/dl (2.5-4.5) 07/29/24 06:22
LDL Cholesterol, Calc 34 mg/dl 07/29/24 06:22
Vitamin B12 365 pg/ml (239-931) 07/28/24 20:50
Ur Buprenorphine Negative (Negative) 07/28/24 21:37
Patient Allergies
No Known Allergies Allergy (Verified 07/28/24 20:38)
Review of Systems
-
History Source: Patient
All other systems: Reviewed and negative
EENT: Negative Swallowing Difficulty
Respiratory: Negative Trouble Breathing
Cardiac: Negative Chest Pain
Abdomen/GI: Negative Incontinence of Stool
Genitourinary: Negative Incontinence
Musculoskeletal: Negative Back Pain or Neck Pain
Neuro: Negative Dizzy or Headache
Physical Exam
-
General: No Apparent Distress and Appears Stated Age
Eyes: Round OU, [place] Conjunctivae and No Ptosis
HEENT: Anicteric and Moist Mucous Membranes
Neck: Full Range of Motion
Respiratory: No Dyspnea
Cardiac: No JVD
GI: Non-distended
Skin: Unremarkable
Extremities: No Clubbing, No Cyanosis and No Edema
Psych: Intact Judgement/Insight
Extended Neurological Exam
Mood & Affect: Mood Unremarkable and Affect Unremarkable
Attention Span & Concentration: Awake, Alert, Interactive and No Difficulty with 2 Step Request
Memory: Unremarkable
Tremor: Hand Tremor Absent and Head Tremor Absent
Speech: Quality Unremarkable and Quantity Unremarkable
Cranial Nerve II: Left Eye: Pupillary Size Unremarkable and Visual Calle Grossly Intact
Cranial Nerve II: Right Eye: Pupillary Size Unremarkable and Visual Calle Grossly Intact
Cranial Nerves III, IV, : Extraocular Movement: Extraocular Movement Full in all Directions
Cranial Nerve VII: Facial Symmetry: Normal Facial Symmetry
Cranial Nerve VIII: Hearing: Unremarkable Hearing to Normal Conversational Volume
Cranial Nerve XI: Shoulder Shrug: Unremarkable
Muscle Strength, Overall: Spontaneously Moves
Muscle Bulk & Tone: Bulk Unremarkable and Tone Unremarkable
Pronator Drift: No Drift in Upper Extremities
Touch Sensation: Unremarkable
Coordination: [id number]-[id number] Testing Unremarkable
Data Reviewed
-
MRI Head: Report Reviewed and Image Reviewed
MRI Cervical Spine: Report Reviewed and Image Reviewed
MRI Thoracic Spine: Report Reviewed
Labs: Ordered, Pending and Report Reviewed
Lipid Profile: Report Reviewed
Reviewed with: Physician and Patient
Old Records: Summarized
Past History
Past History
ED Past Medical History: HTN, NIDDM and Other (Demyelinating plaques, low vitamin B12 level)
ED Past Surgical History: Gynecological
Social History
Tobacco: Smoker
Alcohol: Daily
Family History
Family History: Other (reviewed and non-contributory)
Medications
-
Medications:
Generic Name Dose Route Start Last Admin
Trade Name Freq PRN Reason Stop Dose Admin
Acetaminophen 650 mg 07/29/24 02:50
Acetaminophen 325 Mg Tablet PO 08/26/24 02:49
Q4HPRN PRN
Mild Pain / Temp > 101
Cyanocobalamin 1,000 mcg 07/29/24 08:00 07/30/24 08:21
Cyanocobalamin 1,000 Mcg Tablet PO 08/26/24 07:59 1,000 mcg
DAILY ARNIE Administration
Dextrose 12.5 grams 07/29/24 07:29
Dextrose 50% (0.5 Grams/Ml) 50 Ml Syringe IV 08/26/24 07:28
[id number] PRN
hypoglycemia
Protocol
Folic Acid 1 mg 07/29/24 08:00 07/30/24 08:21
Folic Acid 1 Mg Tablet PO 08/26/24 07:59 1 mg
DAILY ARNIE Administration
Glipizide 2.5 mg 07/30/24 17:00 07/30/24 18:38
Glipizide 5 Mg Regular Release Tablet PO 08/27/24 16:59 2.5 mg
BID@0800,1700 ARNIE Administration
Glucagon 1 mg 07/29/24 07:29
Glucagon 1 Mg Vial IM 08/26/24 07:28
PRN PRN
hypoglycemia
Protocol
Folic Acid 1 mg/ Sodium 50.2 mls @ 200.8 mls/hr 07/29/24 02:50
Chloride IV 08/26/24 02:49
DAILYPRN PRN
if NPO
Insulin Aspart 0 units 07/29/24 07:30 07/30/24 18:16
Insulin Aspart Low Resistance 300 Units/3 Ml Pen.Injctr SC 08/26/24 07:29 3 units
AC ARNIE Administration
Protocol
Lorazepam 1 mg 07/29/24 02:50
Lorazepam 1 Mg Tablet PO 08/26/24 02:49
Q2HPRN PRN
MSAS 5-7
Lorazepam 1 mg 07/29/24 02:50
Lorazepam 2 Mg/Ml Vial IV 08/26/24 02:49
Q1HPRN PRN
MSAS 8-11
Lorazepam 2 mg 07/29/24 02:50
Lorazepam 2 Mg/Ml Vial IV 08/26/24 02:49
Q1HPRN PRN
MSAS > 11
Losartan Potassium 25 mg 07/31/24 08:00
Losartan 25 Mg Tablet PO 08/28/24 07:59
DAILY ARNIE
Ondansetron HCl 4 mg 07/29/24 02:50
Ondansetron 4 Mg/2 Ml Vial IV 08/26/24 02:49
Q6HPRN PRN
nausea and vomiting
Sodium Chloride 0 flush 07/28/24 23:00
Sodium Chloride 0.9% (Flush) Syringe IV 08/25/24 22:59
PER PROTOCOL ARNIE
Sodium Chloride 0 ml 07/29/24 02:50
Sodium Chloride 0.9% (Preservative Free) 10 Ml Vial IV 08/26/24 02:49
PRN PRN
To dilute IV Ativan
Protocol
Thiamine HCl 200 mg 07/29/24 08:00 07/30/24 23:54
Thiamine (100 Mg/Ml) 2 Ml Vial IV 08/01/24 00:01 200 mg
Q8 ARNIE Administration
Thiamine HCl 100 mg 08/01/24 08:00
Thiamine 100 Mg Tablet PO 08/29/24 07:59
BID ARNIE
[2024-07-31 11:00] VITALS: BP 118/67; BP 131/83; BP 133/80; PULSE 72; PULSE 75
--- NOTE | 2024-07-31 12:20 | W.PN.HOSP.TC ---
Today's Communication/Plan
-
Pulse dose steroids
Monitor sugars
LP pending
Monitor blood pressure
Continue with rehab evaluation
Assessment / Plan
Assessment / Plan
General: Anxious, sitting in bed,
HEENT: Moist mucous membranes
Respiratory: Clear; No Wheezes, Rales or Rhonchi
Cardiac: S1/S2 and Regular Rhythm; No Murmur
GI: Soft, Non Tender, Non Distended and Normal Bowel Sounds
Musculoskeletal: No Clubbing, No Cyanosis and No Edema
Neuro: AO x 3 and Other (Strength is intact and symmetric. No evident sensory deficit in the RUE.)
Psych: Anxious
A/P: Patient is a 49y F with PMH significant for hypertension and DM-II who presents to ED complaining of RUE paresthesias since this AM.
RUE Numbness likely secondary to demyelinating disease suspected multiple sclerosis
- CT head with minimal periventricular white matter changes - no acute abnormality.
- Neurology evaluation for additional recommendations.
- ASA and plavix stopped.
- MR C spine showing-STIR hyperintense cervical cord lesions as described, suspicious for multiple sclerosis. Suspect small amount of enhancement of one of the lesions suggesting a component of active disease. Degenerative changes at C4-5 and C5-6
with mild spinal canal stenosis at these levels and [id number] bilateral neural foraminal stenosis at C5-6.
- MR Brain Moderate T2/FLAIR hyperintense foci within the periventricular and deep subcortical white matter in a pattern most in keeping with demyelinating disease/multiple sclerosis. No evidence for active intracranial disease.
- Plan to restart and continue via 1 g Solu-Medrol
- MRI thoracic spine negative for demyelinating process
- Await IRAD recs for LP (received asa/plavix yesterday) discussed with Dr. Elias recommending earliest LP can be performed on Friday
Alcohol Use Disorder / Alcohol Withdrawal
- History of use disorder with last drink 24-36 hours ago. Alcohol level was elevated on admission. UDS + THC
- Anxious and somewhat restless in the ED.
- Follow for further evidence of withdrawal and treat with BZDs PRN.
- Thiamine, folate, MVI replacement.
Benign Hypertension
- Follow for now without changes.
- started losartan 25mg with hold parameters
DM-II
- Non-compliant with prescribed metformin secondary to GI effects.
- A1C at 8.1. Start low dose glipizide
- Diabetes education. POC 186
- Monitor sugars and started on high-dose steroids
Tobacco abuse
-smokes a pack in 72h or so.
-counseled on cessation
DVT Prophylaxis: SCDs
Code Status: Full
Anticipated Discharge: > 48 hours
Subjective/Interval History
-
Date of Service: July 31, 2024
States remains with right upper extremity tingling sensation
Patient is anxious about lumbar puncture timing
Objective Data
-
Vital Signs:
Vital Signs
Temp Pulse Resp BP Pulse Ox
98.1 F 68 16 121/71 97
07/31/24 07:00 07/31/24 07:00 07/31/24 07:00 07/31/24 07:00 07/31/24 07:00
I&O
07/30/24 07/31/24 08/01/24
06:59 06:59 06:59
Intake Total 547 / 2458
Balance 2458 / 2458
[2024-07-31 12:42] LABS: Glucose - Point of Care 136 mg/dl (70-99)
[2024-07-31] MEDS: NOVOLOG FLEXPEN-LOW RESISTANCE SC (12:46)
[2024-07-31] MEDS: PEPCID 40 MG PO (13:04)
[2024-07-31] MEDS: SOLU-MEDROL 258 MG IV (13:05)
[2024-07-31 15:04] VITALS: BP 111/71
[2024-07-31 17:01] LABS: Glucose - Point of Care 353 mg/dl (70-99)
[2024-07-31] MEDS: NOVOLOG FLEXPEN-LOW RESISTANCE 5 UNITS SC (17:02)
[2024-07-31 19:53] VITALS: BP 107/67; BP 122/74; BP 123/75; PULSE 64; PULSE 67; PULSE 70
[2024-07-31 21:23] LABS: Glucose - Point of Care 428 mg/dl (70-99)
[2024-07-31 22:17] LABS: Glucose 404 mg/dl (70-99)
[2024-07-31] MEDS: MELATONIN 10 MG PO (22:21)
[2024-07-31] MEDS: NOVOLOG FLEXPEN 6 UNITS SC (22:28)
[2024-07-31 23:22] VITALS: BP 136/71
[2024-08-01] VITALS (7 sets, daily range): BP systolic 106–145; BP diastolic 67–84
[2024-08-01 01:57] LABS: Glucose - Point of Care 268 mg/dl (70-99)
[2024-08-01 02:42] LABS: Angiotensin-1-converting Enzym 44 U/L (16-85)
[2024-08-01 02:52] LABS: ANA, IgG Reflex to HEp-2 Detected (None Detected)
[2024-08-01 07:31] LABS: Myeloperoxidase Antibody 0 AU/mL (0-19); Serine Protease-3, IgG 0 AU/mL (0-19)
[2024-08-01 07:41] LABS: % Basophils 0.1 % (0-2); % Eosinophils 0.1 % (0-6); % Immature Granulocytes 0.6 % (0-0.5); % Monocytes 4.6 % (1.7-9.3); % Neutrophils 77.6 % (42.2-75.2); Absolute Immature Granulocytes 0.1 10^3/uL (0-0.05); Absolute Lymphocytes 1.8 10^3/uL (1.2-3.4); Absolute Monocytes 0.5 10^3/uL (0.1-0.6); Absolute Neutrophils 8.4 10^3/uL (1.4-6.5); Hematocrit 38.7 % (37.0-47.0); Hemoglobin 12.7 g/dL (12.0-16.0); Mean Corp Hgb Conc. 32.8 g/dL (33.0-37.0); Mean Corpuscular Volume 91.3 fL (81.0-99.0); Mean Platelet Volume 10.4 fL (7.4-10.4); Nucleated Red Blood Cells % 0 %; Platelet Count 219 10^3/uL (130-400); Red Blood Cell Count 4.24 10^6/uL (4.20-5.40); Red Cell Dist. Width 14.1 % (11.5-14.5); White Blood Cell Count 10.8 10^3/uL (4.8-10.8)
[2024-08-01 08:02] LABS: Blood Urea Nitrogen 14 mg/dl (7-17); Calcium 9.3 mg/dl (8.4-10.2); Carbon Dioxide 25 mmol/L (22-30); Chloride 100 mmol/L (98-107); Estimated Creatinine Clearance 111 ml/min; Glucose 238 mg/dl (70-99); Potassium 4.5 mmol/L (3.5-5.1); Sodium 133 mmol/L (135-145); eGFR > 60.00
[2024-08-01 08:15] LABS: Glucose - Point of Care 206 mg/dl (70-99)
[2024-08-01] MEDS: SOLU-MEDROL 258 MG IV (08:21)
[2024-08-01] MEDS: COZAAR 25 MG PO (08:22)
[2024-08-01] MEDS: VITAMIN B1 100 MG PO ×2 (08:22→20:39)
[2024-08-01] MEDS: PEPCID 40 MG PO (08:22)
[2024-08-01] MEDS: VITAMIN B-12 1000 MCG PO (08:22)
[2024-08-01] MEDS: FOLVITE 1 MG PO (08:22)
[2024-08-01] MEDS: GLUCOTROL 2.5 MG PO ×2 (08:30→16:08)
[2024-08-01] MEDS: NOVOLOG FLEXPEN-LOW RESISTANCE 2 UNITS SC (08:31)
--- NOTE | 2024-08-01 09:07 | W.PN.NEURO.1 ---
Today's Communication / Plan
-
Continue high-dose steroids due to enhancing lesion in the spinal cord and persistent symptomatology, initial dose was 07/30/2024
Await blood work for potential mimics for causes
Lumbar puncture to ensure no mimickers of multiple sclerosis (an inflammatory process) with appreciation to the consultants of interventional radiology
Neuro Assessment/Plan
Assessment
Brain MRI w/wo ute showed nonenhancing periventricular juxtacortical T2/FLAIR hyperintensities.
C-spine MRI w/wo ute subtle enhancement at the level of C3-C4, mild C4-C5
Thoracic spine MRI with and without gadolinium was unremarkable
Assessment:
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
EtOH abuse
HTN
Low vitamin B12 level
Plan
Continue high-dose steroids due to enhancing lesion in the spinal cord and persistent symptomatology, initial dose was 07/30/2024
Await blood work for potential mimics for causes
Lumbar puncture to ensure no mimickers of multiple sclerosis (an inflammatory process) with appreciation to the consultants of interventional radiology
Goal of normotension
Goal of normoglycemia
continue B12 replacement
Continue Thiamine
We will follow.
Subjective/Objective
Subjective Data
Date of Service: August 01, 2024
80% of normal no issues with alternative side
Objective Data
Vital Signs
Temp Pulse Resp BP Pulse Ox
36.8 C 67 16 135/77 99
08/01/24 07:00 08/01/24 07:00 08/01/24 07:00 08/01/24 07:00 08/01/24 07:00
Lab Results
08/01/24 06:45
08/01/24 06:45
PT 13.0 Sec (11.4-14.6) 07/30/24 07:32
INR 0.95 07/30/24 07:32
Sodium 133 mmol/L (135-145) L 08/01/24 06:45
Potassium 4.5 mmol/L (3.5-5.1) 08/01/24 06:45
BUN 14 mg/dl (7-17) 08/01/24 06:45
Glucose 238 mg/dl (70-99) H 08/01/24 06:45
Calcium 9.3 mg/dl (8.4-10.2) 08/01/24 06:45
Phosphorus 3.3 mg/dl (2.5-4.5) 07/29/24 06:22
LDL Cholesterol, Calc 34 mg/dl 07/29/24 06:22
Vitamin B12 365 pg/ml (239-931) 07/28/24 20:50
Ur Buprenorphine Negative (Negative) 07/28/24 21:37
Patient Allergies
No Known Allergies Allergy (Verified 07/28/24 20:38)
Review of Systems
-
History Source: Patient
All other systems: Reviewed and negative
EENT: Negative Decreased Vision or Swallowing Difficulty
Respiratory: Negative Trouble Breathing
Cardiac: Negative Chest Pain
Abdomen/GI: Negative Incontinence of Stool
Genitourinary: Negative Incontinence
Musculoskeletal: Negative Back Pain or Neck Pain
Neuro: Negative Dizzy or Headache
Physical Exam
-
General: No Apparent Distress and Appears Stated Age
Eyes: Round OU, [place] Conjunctivae and No Ptosis
HEENT: Anicteric and Moist Mucous Membranes
Neck: Full Range of Motion
Respiratory: No Dyspnea
Cardiac: No JVD
GI: Non-distended
Skin: Unremarkable
Extremities: No Clubbing, No Cyanosis and No Edema
Psych: Intact Judgement/Insight
Extended Neurological Exam
Mood & Affect: Mood Unremarkable and Affect Unremarkable
Attention Span & Concentration: Awake, Alert and Interactive
Memory: Unremarkable
Tremor: Hand Tremor Absent and Head Tremor Absent
Speech: Quality Unremarkable and Quantity Unremarkable
Cranial Nerve II: Left Eye: Pupillary Size Unremarkable and Visual Calle Grossly Intact
Cranial Nerve II: Right Eye: Pupillary Size Unremarkable and Visual Calle Grossly Intact
Cranial Nerves III, IV, : Extraocular Movement: Grossly Intact
Cranial Nerve VII: Facial Symmetry: Normal Facial Symmetry
Cranial Nerve VIII: Hearing: Unremarkable Hearing to Normal Conversational Volume
Cranial Nerve XI: Shoulder Shrug: Unremarkable
Muscle Strength, Overall: Spontaneously Moves (All extremities)
Muscle Bulk & Tone: Bulk Unremarkable and Tone Unremarkable
Touch Sensation: Unremarkable
Coordination: [id number]-cyyr-rzldgk Testing Unremarkable
Data Reviewed
-
Labs: Pending and Report Reviewed
Reviewed with: Physician, Patient and Family (via phone)
Old Records: Summarized
Past History
Past History
ED Past Medical History: HTN, NIDDM and Other (Demyelinating plaques, low vitamin B12 level)
ED Past Surgical History: Gynecological
Social History
Tobacco: Smoker
Alcohol: Daily
Living: with family
Family History
Family History: Other (reviewed and non-contributory)
Medications
-
Medications:
Generic Name Dose Route Start Last Admin
Trade Name Freq PRN Reason Stop Dose Admin
Acetaminophen 650 mg 07/29/24 02:50
Acetaminophen 325 Mg Tablet PO 08/26/24 02:49
Q4HPRN PRN
Mild Pain / Temp > 101
Cyanocobalamin 1,000 mcg 07/29/24 08:00 08/01/24 08:22
Cyanocobalamin 1,000 Mcg Tablet PO 08/26/24 07:59 1,000 mcg
DAILY ARNIE Administration
Dextrose 12.5 grams 07/29/24 07:29
Dextrose 50% (0.5 Grams/Ml) 50 Ml Syringe IV 08/26/24 07:28
[id number] PRN
hypoglycemia
Protocol
Famotidine 40 mg 07/31/24 10:00 08/01/24 08:22
Famotidine 40 Mg Tablet PO 08/03/24 08:01 40 mg
DAILY ARNIE Administration
Folic Acid 1 mg 07/29/24 08:00 08/01/24 08:22
Folic Acid 1 Mg Tablet PO 08/26/24 07:59 1 mg
DAILY ARNIE Administration
Glipizide 2.5 mg 07/30/24 17:00 08/01/24 08:30
Glipizide 5 Mg Regular Release Tablet PO 08/27/24 16:59 2.5 mg
BID@0800,1700 ARNIE Administration
Glucagon 1 mg 07/29/24 07:29
Glucagon 1 Mg Vial IM 08/26/24 07:28
PRN PRN
hypoglycemia
Protocol
Folic Acid 1 mg/ Sodium 50.2 mls @ 200.8 mls/hr 07/29/24 02:50
Chloride IV 08/26/24 02:49
DAILYPRN PRN
if NPO
Methylprednisolone Sodium 258 mls @ 258 mls/hr 07/31/24 09:00 08/01/24 08:21
Succinate 1,000 mg/ Sodium IV 08/03/24 09:59 258 mls
Chloride Q24H ARNIE Administration
Insulin Aspart 0 units 07/29/24 07:30 08/01/24 08:31
Insulin Aspart Low Resistance 300 Units/3 Ml Pen.Injctr SC 08/26/24 07:29 2 units
AC ARNIE Administration
Protocol
Lorazepam 1 mg 07/29/24 02:50
Lorazepam 1 Mg Tablet PO 08/26/24 02:49
Q2HPRN PRN
MSAS 5-7
Lorazepam 1 mg 07/29/24 02:50
Lorazepam 2 Mg/Ml Vial IV 08/26/24 02:49
Q1HPRN PRN
MSAS 8-11
Lorazepam 2 mg 07/29/24 02:50
Lorazepam 2 Mg/Ml Vial IV 08/26/24 02:49
Q1HPRN PRN
MSAS > 11
Lorazepam 1 mg 08/02/24 08:00
Lorazepam 1 Mg Tablet PO 08/02/24 23:59
ONCE PRN
LUMBAR PUNCTURE
Losartan Potassium 25 mg 07/31/24 08:00 08/01/24 08:22
Losartan 25 Mg Tablet PO 08/28/24 07:59 25 mg
DAILY ARNIE Administration
Melatonin 10 mg 07/31/24 22:00 07/31/24 22:21
Melatonin 5 Mg Tablet PO 08/28/24 21:59 10 mg
HS ARNIE Administration
Ondansetron HCl 4 mg 07/29/24 02:50
Ondansetron 4 Mg/2 Ml Vial IV 08/26/24 02:49
Q6HPRN PRN
nausea and vomiting
Sodium Chloride 0 flush 07/28/24 23:00
Sodium Chloride 0.9% (Flush) Syringe IV 08/25/24 22:59
PER PROTOCOL ARNIE
Sodium Chloride 0 ml 07/29/24 02:50
Sodium Chloride 0.9% (Preservative Free) 10 Ml Vial IV 08/26/24 02:49
PRN PRN
To dilute IV Ativan
Protocol
Thiamine HCl 100 mg 08/01/24 08:00 08/01/24 08:22
Thiamine 100 Mg Tablet PO 08/29/24 07:59 100 mg
BID ARNIE Administration
--- NOTE | 2024-08-01 11:00 | CM ---
CM reviewed chart, patient seen bedside. Patient denies any needs at this time, previously offered [facility]/resources-patient declined. CM will continue to follow for all discharge planning needs.
Plan; home no needs anticipated, when stable.
[2024-08-01 12:16] LABS: Glucose - Point of Care 257 mg/dl (70-99)
--- NOTE | 2024-08-01 12:26 | W.PN.HOSP.TC ---
Today's Communication/Plan
-
IV steroids-complete course
ISS -high
LP by IRAD pending
PT/OT
Assessment / Plan
Assessment / Plan
General: Anxious, sitting in bed,
HEENT: Moist mucous membranes
Respiratory: Clear; No Wheezes, Rales or Rhonchi
Cardiac: S1/S2 and Regular Rhythm; No Murmur
GI: Soft, Non Tender, Non Distended and Normal Bowel Sounds
Musculoskeletal: No Clubbing, No Cyanosis and No Edema
Neuro: AO x 3 and Other (Strength is intact and symmetric. No evident sensory deficit in the RUE.)
Psych: Anxious
A/P: Patient is a 49y F with PMH significant for hypertension and DM-II who presents to ED complaining of RUE paresthesias since this AM.
RUE Numbness likely secondary to demyelinating disease suspected multiple sclerosis
- CT head with minimal periventricular white matter changes - no acute abnormality.
- Neurology evaluation for additional recommendations.
- ASA and plavix stopped.
- MR C spine showing-STIR hyperintense cervical cord lesions as described, suspicious for multiple sclerosis. Suspect small amount of enhancement of one of the lesions suggesting a component of active disease. Degenerative changes at C4-5 and C5-6
with mild spinal canal stenosis at these levels and [id number] bilateral neural foraminal stenosis at C5-6.
- MR Brain Moderate T2/FLAIR hyperintense foci within the periventricular and deep subcortical white matter in a pattern most in keeping with demyelinating disease/multiple sclerosis. No evidence for active intracranial disease.
- Plan to restart and continue via 1 g Solu-Medrol
- MRI thoracic spine negative for demyelinating process
- Vitamin B12 mildly low and started on supplementation
- Await [facility] recs for LP (received asa/plavix yesterday) discussed with Dr. Elias recommending earliest LP can be performed on Friday
Alcohol Use Disorder / Alcohol Withdrawal
- History of use disorder with last drink 24-36 hours ago. Alcohol level was elevated on admission. UDS + THC
- Anxious and somewhat restless in the ED.
- Follow for further evidence of withdrawal and treat with BZDs PRN.
- Thiamine, folate, MVI replacement.
Benign Hypertension
- Follow for now without changes.
- started losartan 25mg with hold parameters
DM-II
- Non-compliant with prescribed metformin secondary to GI effects.
- A1C at 8.1. Start low dose glipizide
- Diabetes education.
- Monitor sugars and started on high-dose steroids adjust insulin to high-dose sliding scale
Tobacco abuse
-smokes a pack in 72h or so.
-counseled on cessation
Hypokalemia
-replete/monitor
DVT Prophylaxis: SCDs
Code Status: Full
Discussed with family member over the phone in details
PT/OT
Anticipated Discharge: > 48 hours
Subjective/Interval History
-
Date of Service: August 01, 2024
Remains with RUE tingling
Objective Data
-
Labs:
Laboratory Results
08/01/24
06:45
WBC 10.8
Hgb 12.7
Hct 38.7
Plt Count 219
Sodium 133 L
Potassium 4.5
Chloride 100
Carbon Dioxide 25
BUN 14
Creatinine 0.6
Glucose 238 H
Calcium 9.3
Vital Signs:
Vital Signs
Temp Pulse Resp BP Pulse Ox
99.0 F 70 18 130/78 98
08/01/24 11:00 08/01/24 11:00 08/01/24 11:00 08/01/24 11:00 08/01/24 11:00
I&O
07/31/24 08/01/24 08/02/24
06:59 06:59 06:59
Intake Total 1979 2400 / 2400
Balance 1979 2400 / 2400
[2024-08-01] MEDS: NOVOLOG FLEXPEN-LOW RESISTANCE 3 UNITS SC (12:47)
[2024-08-01 16:27] LABS: Glucose - Point of Care 385 mg/dl (70-99)
--- NOTE | 2024-08-01 16:39 | W.PN.UPDATE ---
Addendum entered and electronically signed by Timothy Guzman MD 08/01/24 17:11:
d/w with neurologist-recommending to restart aspirin 81mg.
Original Note:
Update Note
Progress Note Update
Rapid response was called as patient after waking up from sleep was complaining of headache and also worsening of right upper extremity numbing and tingling sensation. Upon my evaluation patient stated she had a headache when she woke up but it has
resolved at this point. Denies any neck pain. Denies any vision problems. Denies any nausea or vomiting. States of right hand numbing and tingling sensation which was the initial symptom on admission. no pain. Able to make fist without any
difficulty. Patient blood pressure was systolic 180 which is down trended to 140s. POC was elevated. EKG with normal sinus rhythm. No acute ST or T wave changes was noted. General in mild acute distress, anxious, crying. Cardiac was S1-S2
regular rate. Lungs are clear to auscultation bilaterally. Neuro awake alert oriented. Right upper extremity numbing tingling subjectively. Motor strength intact. Positive radial and ulnar pulses. No hematoma right wrist right hand noted. No
neck pain on palpation of cervical spine. Check basic labs. Confirm POC on BMP and will adjust insulin. Monitor blood pressure. Check CT of the head. Antianxiety medication as needed. Can try headache cocktail if repeat episode. Monitor blood
pressure. Continue with neurochecks. Cervical MRI was performed earlier in the admission w/Degenerative changes at C4-5 and C5-6 with mild spinal canal stenosis at these levels and [id number]-[id number] bilateral neural foraminal stenosis at C5-6. STIR
hyperintense cervical cord lesions as described, suspicious for multiple sclerosis. Suspect small amount of enhancement of one of the lesions suggesting a component of active disease. Could be due to cervical radiculopathy versus suspected MS
related. Discussed with primary RN.
Total Critical Care Time_ 35 minutes. I was immediately available to the patient and staff. I personally examined, reviewed labs, diagnostic images/reports, interpretations, treatment plans, discussed patient care with other providers and family
or caregivers (if patient is unable to make decisions), entered orders as appropriate and documented the medical record.
--- NOTE | 2024-08-01 16:41 | PTCARENOTE ---
Addendum entered by Mikaela Cordero RN 08/01/24 16:43:
Dr Guzman made aware, rapid response called for further assistance. Md came to bedside, ordered labs and stat head CT. Pt settled down, will continue to monitor for further needs.
Original Note:
At 1630, pt reported severe headache, numbness and spasms of right arm, pt alarmed 160s hr on monitor. Staff went into room, pt's bp 190/92 hr 160s, and sugar 385. EKG shows nsr with nonspecific ST and T wave abnormalities. Repeat bp taken 145/84.
Pt settled down, +
[2024-08-01] MEDS: NOVOLOG FLEXPEN-HIGH RESISTANCE 12 UNITS SC (16:48)
[2024-08-01 16:56] LABS: % Eosinophils 0.5 % (0-6); % Immature Granulocytes 0.4 % (0-0.5); % Lymphocytes 10.2 % (20.5-51.1); % Monocytes 1.8 % (1.7-9.3); % Neutrophils 87.1 % (42.2-75.2); Absolute Eosinophils 0.1 10^3/uL (0-0.7); Absolute Immature Granulocytes 0.1 10^3/uL (0-0.05); Absolute Lymphocytes 1.1 10^3/uL (1.2-3.4); Absolute Monocytes 0.2 10^3/uL (0.1-0.6); Absolute Neutrophils 9.7 10^3/uL (1.4-6.5); Hematocrit 44.3 % (37.0-47.0); Hemoglobin 14.6 g/dL (12.0-16.0); Mean Corpuscular Hgb 30.2 pg (27.0-31.0); Mean Corpuscular Volume 91.5 fL (81.0-99.0); Mean Platelet Volume 10.4 fL (7.4-10.4); Nucleated Red Blood Cells % 0 %; Platelet Count 252 10^3/uL (130-400); Red Blood Cell Count 4.84 10^6/uL (4.20-5.40); Red Cell Dist. Width 14.1 % (11.5-14.5); White Blood Cell Count 11.1 10^3/uL (4.8-10.8)
[2024-08-01 17:05] LABS: ALT (SGPT) 54 U/L (0-35); AST (SGOT) 31 U/L (14-36); Albumin 4.7 g/dl (3.5-5.0); Alkaline Phosphatase 83 U/L (38-126); Blood Urea Nitrogen 23 mg/dl (7-17); Calcium 9.9 mg/dl (8.4-10.2); Carbon Dioxide 23 mmol/L (22-30); Chloride 97 mmol/L (98-107); Estimated Creatinine Clearance 95 ml/min; Glucose 382 mg/dl (70-99); Potassium 4.9 mmol/L (3.5-5.1); Sodium 132 mmol/L (135-145); Total Bilirubin 0.5 mg/dl (0.2-1.3); Total Protein 7.9 g/dl (6.3-8.2); eGFR > 60.00
[2024-08-01 17:16] LABS: Troponin I < 0.012 ng/ml
[2024-08-01 20:59] LABS: Glucose - Point of Care 383 mg/dl (70-99)
[2024-08-01] MEDS: LANTUS 0.07 UNITS SC (22:03)
[2024-08-01] MEDS: MELATONIN 10 MG PO (22:03)
[2024-08-02] VITALS (7 sets, daily range): BP systolic 68–146; BP diastolic 57–82
[2024-08-02 06:59] LABS: Glucose - Point of Care 154 mg/dl (70-99)
[2024-08-02 07:19] LABS: ANA, HEp-2, IgG <1:80 (<1:80)
[2024-08-02 07:58] LABS: % Basophils 0.1 % (0-2); % Eosinophils 0.1 % (0-6); % Immature Granulocytes 0.6 % (0-0.5); % Lymphocytes 28.2 % (20.5-51.1); % Monocytes 6.6 % (1.7-9.3); % Neutrophils 64.4 % (42.2-75.2); Absolute Immature Granulocytes 0.1 10^3/uL (0-0.05); Absolute Lymphocytes 3.5 10^3/uL (1.2-3.4); Absolute Monocytes 0.8 10^3/uL (0.1-0.6); Hematocrit 40.8 % (37.0-47.0); Hemoglobin 13.4 g/dL (12.0-16.0); Mean Corp Hgb Conc. 32.8 g/dL (33.0-37.0); Mean Corpuscular Volume 91.3 fL (81.0-99.0); Mean Platelet Volume 10.4 fL (7.4-10.4); Nucleated Red Blood Cells % 0 %; Platelet Count 251 10^3/uL (130-400); Red Blood Cell Count 4.47 10^6/uL (4.20-5.40); Red Cell Dist. Width 14.3 % (11.5-14.5); White Blood Cell Count 12.4 10^3/uL (4.8-10.8)
[2024-08-02] MEDS: FOLVITE 1 MG PO (08:00)
[2024-08-02] MEDS: COZAAR 25 MG PO (08:01)
[2024-08-02] MEDS: VITAMIN B-12 1000 MCG PO (08:01)
[2024-08-02] MEDS: GLUCOTROL 2.5 MG PO ×2 (08:01→17:27)
[2024-08-02] MEDS: VITAMIN B1 100 MG PO ×2 (08:03→19:38)
[2024-08-02] MEDS: PEPCID 40 MG PO (08:03)
[2024-08-02] MEDS: ASPIR LOW (ENTERIC COATED) 81 MG PO (08:04)
[2024-08-02] MEDS: NOVOLOG FLEXPEN-HIGH RESISTANCE 2 UNITS SC (08:05)
[2024-08-02] MEDS: NOVOLOG FLEXPEN 4 UNITS SC ×3 (08:05→17:44)
[2024-08-02 08:09] LABS: PT 13.5 Sec (11.4-14.6)
[2024-08-02] MEDS: SOLU-MEDROL 258 MG IV (08:38)
--- NOTE | 2024-08-02 08:38 | W.PN.NEURO.1 ---
Today's Communication / Plan
-
Continue high-dose steroids due to enhancing lesion in the spinal cord and persistent symptomatology, initial dose was 07/30/2024
Await blood work for potential mimics for causes
Continue Melatonin
Lumbar puncture to ensure no mimickers of multiple sclerosis (an inflammatory process) with appreciation to the consultants of interventional radiology
Continue ASA x 6 months then reconsider
Neuro Assessment/Plan
Assessment
Brain MRI w/wo ute showed nonenhancing periventricular juxtacortical T2/FLAIR hyperintensities.
C-spine MRI w/wo ute subtle enhancement at the level of C3-C4, mild C4-C5
Thoracic spine MRI with and without gadolinium was unremarkable
Assessment:
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
EtOH abuse
HTN
Low vitamin B12 level
Plan
Continue high-dose steroids due to enhancing lesion in the spinal cord and persistent symptomatology, initial dose was 07/30/2024
Await blood work for potential mimics for causes
Continue Melatonin
Lumbar puncture to ensure no mimickers of multiple sclerosis (an inflammatory process) with appreciation to interventional radiology
Continue ASA x 6 months then reconsider
Goal of normotension
Goal of normoglycemia
continue B12 replacement
Continue Thiamine
We will follow.
Subjective/Objective
Subjective Data
Date of Service: August 02, 2024
Worsening of right hand numbness, after new headache then unable to control right hand, contracted then resolved after 30 seconds; arm sensation change for 10 mins.
Blurred vision started this AM.
Objective Data
Vital Signs
Temp Pulse Resp BP Pulse Ox
36.4 C 67 16 141/82 100
08/02/24 07:00 08/02/24 07:00 08/02/24 07:00 08/02/24 07:00 08/02/24 07:00
Lab Results
08/02/24 07:37
PT 13.5 Sec (11.4-14.6) 08/02/24 07:37
INR 1.00 08/02/24 07:37
Sodium 132 mmol/L (135-145) L 08/01/24 16:44
Potassium 4.9 mmol/L (3.5-5.1) 08/01/24 16:44
BUN 23 mg/dl (7-17) H 08/01/24 16:44
Glucose 382 mg/dl (70-99) H 08/01/24 16:44
Calcium 9.9 mg/dl (8.4-10.2) 08/01/24 16:44
Phosphorus 3.3 mg/dl (2.5-4.5) 07/29/24 06:22
LDL Cholesterol, Calc 34 mg/dl 07/29/24 06:22
Vitamin B12 365 pg/ml (239-931) 07/28/24 20:50
Ur Buprenorphine Negative (Negative) 07/28/24 21:37
Patient Allergies
No Known Allergies Allergy (Verified 07/28/24 20:38)
Review of Systems
-
History Source: Patient
All other systems: Reviewed and negative
EENT: Blurry Vision; Negative Swallowing Difficulty
Respiratory: Negative Trouble Breathing
Cardiac: Negative Chest Pain
Musculoskeletal: Negative Back Pain or Neck Pain
Neuro: Negative Dizzy or Headache
Physical Exam
-
General: No Apparent Distress and Appears Stated Age
Eyes: OU Absent Papilledema, Able to visualize OU, Round OU, [place] Conjunctivae and No Ptosis
HEENT: Anicteric and Moist Mucous Membranes
Neck: Full Range of Motion
Respiratory: No Dyspnea
Cardiac: No JVD
GI: Non-distended
Skin: Unremarkable
Extremities: No Clubbing, No Cyanosis and No Edema
Psych: Negative Intact Judgement/Insight
Extended Neurological Exam
Mood & Affect: Mood Unremarkable and Affect Unremarkable
Attention Span & Concentration: Awake, Alert and Interactive
Memory: Unremarkable
Tremor: Hand Tremor Absent and Head Tremor Absent
Speech: Quality Unremarkable and Quantity Unremarkable
Cranial Nerve II: Left Eye: Pupillary Reactivity Unremarkable, Pupillary Size Unremarkable and Visual Calle Intact
Cranial Nerve II: Right Eye: Pupillary Reactivity Unremarkable, Pupillary Size Unremarkable and Visual Calle Intact
Cranial Nerves III, IV, : Extraocular Movement: Extraocular Movement Full in all Directions
Cranial Nerve VII: Facial Symmetry: Normal Facial Symmetry
Cranial Nerve VIII: Hearing: Unremarkable Hearing to Normal Conversational Volume
Cranial Nerve XI: Shoulder Shrug: Unremarkable
Muscle Strength, Overall: Spontaneously Moves (All extremities)
Muscle Bulk & Tone: Bulk Unremarkable and Tone Unremarkable
Pronator Drift: No Drift in Upper Extremities
Touch Sensation: Unremarkable
Coordination: Pmyzrr-ojpe-enjxoh Testing Unremarkable
[2024-08-02 08:39] LABS: Blood Urea Nitrogen 20 mg/dl (7-17); Calcium 9.5 mg/dl (8.4-10.2); Carbon Dioxide 28 mmol/L (22-30); Chloride 97 mmol/L (98-107); Estimated Creatinine Clearance 95 ml/min; Glucose 136 mg/dl (70-99); Sodium 133 mmol/L (135-145); eGFR > 60.00
--- NOTE | 2024-08-02 09:43 | W.PN.HOSP.TC ---
Today's Communication/Plan
-
Continue IV Solu-Medrol
Lumbar puncture
Assessment / Plan
Assessment / Plan
Gen-AAOx3, NAD
HEENT-NC, AT, anicteric, clear oral mm
Neck-supple
CV-reg, no M, +S1/S2
Lungs-clear B/L
Abd-soft, NT, ND
Ext-no edema
Musculoskeletal-no cyanosis, clubbing
Skin-warm and dry
Neuro-grossly non-focal
Psych-calm, cooperative
RUE Numbness likely secondary to demyelinating disease suspected multiple sclerosis
- CT head with minimal periventricular white matter changes - no acute abnormality.
- Neurology evaluation for additional recommendations.
- Plavix discontinued.
- MR C spine showing-STIR hyperintense cervical cord lesions as described, suspicious for multiple sclerosis. Suspect small amount of enhancement of one of the lesions suggesting a component of active disease. Degenerative changes at C4-5 and C5-6
with mild spinal canal stenosis at these levels and [id number]-[id number] bilateral neural foraminal stenosis at C5-6.
- MR Brain Moderate T2/FLAIR hyperintense foci within the periventricular and deep subcortical white matter in a pattern most in keeping with demyelinating disease/multiple sclerosis. No evidence for active intracranial disease.
- Day 4 out of 5 for IV Solu-Medrol.
- MRI thoracic spine negative for demyelinating process
- Vitamin B12 mildly low and started on supplementation
- Await [facility] lumbar puncture today.
Events from overnight noted. CT head without contrast obtained yesterday, showing mild diffuse cortical and cerebellar atrophy, old 2 mm lacunar infarct in the posterior aspect of the right lentiform nucleus.
Alcohol Use Disorder / Alcohol Withdrawal
- History of use disorder with last drink 24-36 hours ago. Alcohol level was elevated on admission. UDS + THC
- Anxious and somewhat restless in the ED.
- Follow for further evidence of withdrawal and treat with BZDs PRN.
- Thiamine, folate, MVI replacement.
Essential hypertension -not on treatment at home.
- Follow for now without changes.
- started losartan 25mg with hold parameters
DM 2 with hyperglycemia -
- Non-compliant with prescribed metformin secondary to GI effects.
- A1C at 8.0%. Started low-dose glipizide. Does not have a PCP, discussed obtaining one as soon as possible.
- Diabetes education.
- Monitor sugars and started on high-dose steroids adjust insulin to high-dose sliding scale
Tobacco dependence
-smokes a pack in 72h or so.
-counseled on cessation
Hypokalemia -resolved.
DVT Prophylaxis: SCDs
Code Status: Full
Anticipated Discharge: Within 24 hours
Subjective/Interval History
-
Date of Service: August 02, 2024
Patient seen and examined. Feeling better, no new complaints.
Objective Data
-
Labs:
Laboratory Results
08/02/24
07:37
WBC 12.4 H
Hgb 13.4
Hct 40.8
Plt Count 251
PT 13.5
INR 1.00
Sodium 133 L
Potassium 4.0
Chloride 97 L
Carbon Dioxide 28
BUN 20 H
Creatinine 0.7
Glucose 136 H
Calcium 9.5
Vital Signs:
Vital Signs
Temp Pulse Resp BP Pulse Ox
97.6 F 67 16 141/82 100
08/02/24 07:00 08/02/24 07:00 08/02/24 07:00 08/02/24 07:00 08/02/24 07:00
I&O
08/01/24 08/02/24 08/03/24
06:59 06:59 06:59
Intake Total 2400 / 2400 2340 / 2340
Balance 2400 / 2400 2340 / 2340
Review of Systems
-
History Source: Patient
All other systems: Reviewed and negative
[2024-08-02] MEDS: ATIVAN 1 MG PO (10:23)
[2024-08-02 13:03] LABS: Glucose - Point of Care 225 mg/dl (70-99)
[2024-08-02 13:08] LABS: Spinal Fluid Glucose 119 mg/dl (40-70); Spinal Fluid Protein 78 mg/dl (12-60)
[2024-08-02 13:15] LABS: CSF Color Colorless; CSF Tube # 3; CSF Tube # Clarity Clear; Red Cell Count/CSF 0 mm^3; White Blood Cell Count/CSF 2 mm^3 (0-5)
[2024-08-02] MEDS: NOVOLOG FLEXPEN-HIGH RESISTANCE 4 UNITS SC (13:20)
[2024-08-02 13:21] LABS: CSF Clarity Clear; CSF Color Colorless; CSF Tube # 4; Red Cell Count/CSF 1 mm^3
[2024-08-02 13:27] LABS: White Cell Count/CSF 7 mm^3 (0-5)
[2024-08-02 14:39] LABS: Spinal Fluid Lymphocytes 97 %; Spinal Fluid Macrophages 3 %
[2024-08-02 16:27] LABS: Lyme Antibody Screen, EIA Negative (Negative)
[2024-08-02 16:31] LABS: Glucose - Point of Care 520 mg/dl (70-99)
[2024-08-02 17:19] LABS: Glucose 574 mg/dl (70-99)
[2024-08-02] MEDS: NOVOLOG FLEXPEN 10 UNITS SC (17:45)
[2024-08-02] MEDS: NOVOLOG FLEXPEN-HIGH RESISTANCE SC (17:45)
[2024-08-02 19:15] LABS: Glucose - Point of Care 390 mg/dl (70-99)
[2024-08-02] MEDS: NOVOLOG FLEXPEN 12 UNITS SC (20:31)
[2024-08-02 22:15] LABS: Glucose - Point of Care 320 mg/dl (70-99)
[2024-08-02] MEDS: LANTUS 0.07 UNITS SC (22:20)
[2024-08-02] MEDS: MELATONIN 10 MG PO (22:20)
[2024-08-03 02:11] LABS: Glucose - Point of Care 211 mg/dl (70-99)
[2024-08-03 03:00] VITALS: BP 121/74
[2024-08-03 07:05] VITALS: BP 130/74
[2024-08-03 07:57] LABS: Glucose - Point of Care 122 mg/dl (70-99)
[2024-08-03] MEDS: ASPIR LOW (ENTERIC COATED) 81 MG PO (08:35)
[2024-08-03] MEDS: GLUCOTROL 2.5 MG PO (08:35)
[2024-08-03] MEDS: VITAMIN B1 100 MG PO (08:35)
[2024-08-03] MEDS: NOVOLOG FLEXPEN-HIGH RESISTANCE 1 UNITS SC (08:36)
[2024-08-03] MEDS: NOVOLOG FLEXPEN 4 UNITS SC (08:36)
[2024-08-03] MEDS: PEPCID 40 MG PO (08:36)
[2024-08-03] MEDS: COZAAR 25 MG PO (08:36)
[2024-08-03] MEDS: FOLVITE 1 MG PO (08:36)
[2024-08-03] MEDS: VITAMIN B-12 1000 MCG PO (08:36)
--- NOTE | 2024-08-03 08:36 | W.PN.NEURO.1 ---
Today's Communication / Plan
-
Continue high-dose steroids due to enhancing lesion in the spinal cord and persistent symptomatology, initial dose was 07/30/2024, total of 5 doses
Await spinal fluid results for oligoclonal bands
Patient should meet once as outpatient with multiple sclerosis subspecialist
Continue ASA x 6 months then reconsider
continue B12 replacement
Neuro Assessment/Plan
Assessment
Brain MRI w/wo ute showed nonenhancing periventricular juxtacortical T2/FLAIR hyperintensities.
C-spine MRI w/wo ute subtle enhancement at the level of C3-C4, mild C4-C5
Thoracic spine MRI with and without gadolinium was unremarkable
Lumbar puncture to ensure no mimickers of multiple sclerosis performed without significant findings so far.
Assessment:
Probable [employer] demyelinating disease, specifically multiple sclerosis
EtOH abuse
HTN
Low vitamin B12 level
Plan
Continue high-dose steroids due to enhancing lesion in the spinal cord and persistent symptomatology, initial dose was 07/30/2024, total of 5 doses
Await spinal fluid results for oligoclonal bands
Patient should meet once as outpatient with multiple sclerosis subspecialist
Await blood work for potential mimics for causes
Continue ASA x 6 months then reconsider
Goal of normotension
Goal of normoglycemia
continue B12 replacement
Continue Thiamine
We will follow as outpatient.
Subjective/Objective
Subjective Data
Date of Service: August 03, 2024
Continued normal right hand function, sandpaper in all fingers.
Objective Data
Vital Signs
Temp Pulse Resp BP Pulse Ox
36.7 C 66 18 130/74 97
08/03/24 07:05 08/03/24 07:05 08/03/24 07:05 08/03/24 07:05 08/03/24 07:05
Lab Results
08/02/24 07:37
08/02/24 16:56
PT 13.5 Sec (11.4-14.6) 08/02/24 07:37
INR 1.00 08/02/24 07:37
Sodium 133 mmol/L (135-145) L 08/02/24 07:37
Potassium 4.0 mmol/L (3.5-5.1) 08/02/24 07:37
BUN 20 mg/dl (7-17) H 08/02/24 07:37
Glucose 574 mg/dl (70-99) H* 08/02/24 16:56
Calcium 9.5 mg/dl (8.4-10.2) 08/02/24 07:37
Phosphorus 3.3 mg/dl (2.5-4.5) 07/29/24 06:22
LDL Cholesterol, Calc 34 mg/dl 07/29/24 06:22
Vitamin B12 365 pg/ml (239-931) 07/28/24 20:50
Ur Buprenorphine Negative (Negative) 07/28/24 21:37
Patient Allergies
No Known Allergies Allergy (Verified 07/28/24 20:38)
Review of Systems
-
History Source: Patient
All other systems: Reviewed and negative
EENT: Negative Blurry Vision or Swallowing Difficulty
Respiratory: Negative Trouble Breathing
Cardiac: Negative Chest Pain
Abdomen/GI: Negative Incontinence of Stool
Genitourinary: Negative Incontinence
Musculoskeletal: Negative Back Pain or Neck Pain
Neuro: Negative Dizzy or Headache
Physical Exam
-
General: No Apparent Distress and Appears Stated Age
Eyes: Round OU, [place]iel Conjunctivae and No Ptosis
HEENT: Anicteric and Moist Mucous Membranes
Neck: Full Range of Motion
Respiratory: No Dyspnea
Cardiac: No JVD
GI: Non-distended
Skin: Unremarkable
Extremities: No Clubbing, No Cyanosis and No Edema
Psych: Intact Judgement/Insight
Extended Neurological Exam
Mood & Affect: Mood Unremarkable and Affect Unremarkable
Attention Span & Concentration: Awake, Alert and Interactive
Memory: Unremarkable
Tremor: Hand Tremor Absent and Head Tremor Absent
Speech: Quality Unremarkable and Quantity Unremarkable
Cranial Nerve II: Left Eye: Pupillary Reactivity Unremarkable, Pupillary Size Unremarkable and Visual Calle Intact
Cranial Nerve II: Right Eye: Pupillary Reactivity Unremarkable, Pupillary Size Unremarkable and Visual Calle Intact
Cranial Nerves III, IV, : Extraocular Movement: Extraocular Movement Full in all Directions
Cranial Nerve VII: Facial Symmetry: Normal Facial Symmetry
Cranial Nerve VIII: Hearing: Unremarkable Hearing to Normal Conversational Volume
Cranial Nerve XI: Shoulder Shrug: Unremarkable
Muscle Strength, Overall: Spontaneously Moves (All extremities)
Muscle Bulk & Tone: Bulk Unremarkable and Tone Unremarkable
Pronator Drift: No Drift in Upper Extremities
Touch Sensation: Unremarkable
Coordination: Vrnaje-[id number]-jiqwvx Testing Unremarkable
Past History
Past History
ED Past Medical History: HTN, NIDDM and Other (Demyelinating plaques, low vitamin B12 level)
ED Past Surgical History: Gynecological
Social History
Tobacco: Smoker
Alcohol: Chronic alcoholic
Living: with family
Family History
Family History: Other (reviewed and non-contributory)
Medications
-
Medications:
Generic Name Dose Route Start Last Admin
Trade Name Freq PRN Reason Stop Dose Admin
Acetaminophen 650 mg 07/29/24 02:50
Acetaminophen 325 Mg Tablet PO 08/26/24 02:49
Q4HPRN PRN
Mild Pain / Temp > 101
Aspirin 81 mg 08/02/24 08:00 08/02/24 08:04
Aspirin 81 Mg (Enteric Coated) Tablet PO 08/30/24 07:59 81 mg
DAILY ARNIE Administration
Cyanocobalamin 1,000 mcg 07/29/24 08:00 08/02/24 08:01
Cyanocobalamin 1,000 Mcg Tablet PO 08/26/24 07:59 1,000 mcg
DAILY ARNIE Administration
Dextrose 12.5 grams 07/29/24 07:29
Dextrose 50% (0.5 Grams/Ml) 50 Ml Syringe IV 08/26/24 07:28
[id number] PRN
hypoglycemia
Protocol
Folic Acid 1 mg 07/29/24 08:00 08/02/24 08:00
Folic Acid 1 Mg Tablet PO 08/26/24 07:59 1 mg
DAILY ARNIE Administration
Glipizide 2.5 mg 07/30/24 17:00 08/02/24 17:27
Glipizide 5 Mg Regular Release Tablet PO 08/27/24 16:59 2.5 mg
BID@0800,1700 ARNIE Administration
Glucagon 1 mg 07/29/24 07:29
Glucagon 1 Mg Vial IM 08/26/24 07:28
PRN PRN
hypoglycemia
Protocol
Folic Acid 1 mg/ Sodium 50.2 mls @ 200.8 mls/hr 07/29/24 02:50
Chloride IV 08/26/24 02:49
DAILYPRN PRN
if NPO
Methylprednisolone Sodium 258 mls @ 258 mls/hr 07/31/24 09:00 08/02/24 08:38
Succinate 1,000 mg/ Sodium IV 08/03/24 09:59 258 mls
Chloride Q24H ARNIE Administration
Insulin Glargine 7 units/ 0.07 mls @ 0 mls/hr 08/01/24 22:00 08/02/24 22:20
Device SC 08/29/24 21:59 0.07 mls
HS ARNIE Administration
As Directed
Insulin Aspart 0 units 08/01/24 16:30 08/02/24 17:45
Insulin Aspart High Resistance 300 Units/3 Ml Pen.Injctr SC 08/29/24 16:29 Not Given
AC ARNIE
Protocol
Insulin Aspart 4 units 08/02/24 07:30 08/02/24 17:44
Insulin Aspart (100 Units/Ml) 3 Ml Flexpen SC 08/30/24 07:29 4 units
AC ARNIE Administration
Labetalol HCl 10 mg 08/01/24 17:05
Labetalol Hcl 5 Mg/1 Ml (20 Mg/4 Ml) Injection IV 08/29/24 17:04
Q6HPRN PRN
SBP>140
Lorazepam 1 mg 07/29/24 02:50
Lorazepam 1 Mg Tablet PO 08/26/24 02:49
Q2HPRN PRN
MSAS 5-7
Lorazepam 1 mg 07/29/24 02:50
Lorazepam 2 Mg/Ml Vial IV 08/26/24 02:49
Q1HPRN PRN
MSAS 8-11
Lorazepam 2 mg 07/29/24 02:50
Lorazepam 2 Mg/Ml Vial IV 08/26/24 02:49
Q1HPRN PRN
MSAS > 11
Lorazepam 0.5 mg 08/01/24 17:50
Lorazepam 0.5 Mg Tablet PO 08/29/24 17:59
DAILY PRN
anxiety
Losartan Potassium 25 mg 07/31/24 08:00 08/02/24 08:01
Losartan 25 Mg Tablet PO 08/28/24 07:59 25 mg
DAILY ARNIE Administration
Melatonin 10 mg 07/31/24 22:00 08/02/24 22:20
Melatonin 5 Mg Tablet PO 08/28/24 21:59 10 mg
HS ARNIE Administration
Ondansetron HCl 4 mg 07/29/24 02:50
Ondansetron 4 Mg/2 Ml Vial IV 08/26/24 02:49
Q6HPRN PRN
nausea and vomiting
Sodium Chloride 0 flush 07/28/24 23:00
Sodium Chloride 0.9% (Flush) Syringe IV 08/25/24 22:59
PER PROTOCOL ARNIE
Sodium Chloride 0 ml 07/29/24 02:50
Sodium Chloride 0.9% (Preservative Free) 10 Ml Vial IV 08/26/24 02:49
PRN PRN
To dilute IV Ativan
Protocol
Thiamine HCl 100 mg 08/01/24 08:00 08/02/24 19:38
Thiamine 100 Mg Tablet PO 08/29/24 07:59 100 mg
BID ARNIE Administration
[2024-08-03] MEDS: SOLU-MEDROL 258 MG IV (08:37)
--- NOTE | 2024-08-03 10:38 | W.PN.HOSP.TC ---
Today's Communication/Plan
-
Discharge
Assessment / Plan
Assessment / Plan
Gen-AAOx3, NAD
HEENT-NC, AT, anicteric, clear oral mm
Neck-supple
CV-reg, no M, +S1/S2
Lungs-clear B/L
Abd-soft, NT, ND
Ext-no edema
Musculoskeletal-no cyanosis, clubbing
Skin-warm and dry
Neuro-grossly non-focal
Psych-calm, cooperative
RUE Numbness - likely secondary to demyelinating disease, suspected multiple sclerosis
- CT head with minimal periventricular white matter changes - no acute abnormality.
- Neurology evaluation for additional recommendations.
- Plavix discontinued.
- MR C spine showing-STIR hyperintense cervical cord lesions as described, suspicious for multiple sclerosis. Suspect small amount of enhancement of one of the lesions suggesting a component of active disease. Degenerative changes at C4-5 and C5-6
with mild spinal canal stenosis at these levels and [id number] bilateral neural foraminal stenosis at C5-6.
- MR Brain Moderate T2/FLAIR hyperintense foci within the periventricular and deep subcortical white matter in a pattern most in keeping with demyelinating disease/multiple sclerosis. No evidence for active intracranial disease.
- Day 5 out of 5 for IV Solu-Medrol.
- MRI thoracic spine negative for demyelinating process
- Vitamin B12 mildly low and started on supplementation
- Lumbar puncture completed. Special studies pending.
Alcohol Use Disorder / Alcohol Withdrawal
- History of use disorder with last drink 24-36 hours ago. Alcohol level was elevated on admission. UDS + THC
- Anxious and somewhat restless in the ED.
- Follow for further evidence of withdrawal and treat with BZDs PRN.
- Thiamine, folate, MVI replacement.
Essential hypertension -not on treatment at home.
- Follow for now without changes.
- started losartan 25mg with hold parameters
DM 2 with hyperglycemia -glucose 122 this morning.
- Non-compliant with prescribed metformin secondary to GI effects.
- A1C at 8.0%. Started low-dose glipizide. Does not have a PCP, discussed obtaining one as soon as possible.
- Diabetes education.
- Monitor sugars and started on high-dose steroids adjust insulin to high-dose sliding scale
Tobacco dependence
-smokes a pack in 72h or so.
-counseled on cessation
Hypokalemia -resolved.
DVT Prophylaxis: SCDs
Code Status: Full
Dispo -medically stable for discharge as per neurology. Outpatient follow-up with PCP and neurology.
32 minutes spent in discharge process.
Anticipated Discharge: Today
Subjective/Interval History
-
Date of Service: August 03, 2024
Patient seen and examined. No new complaints.
Objective Data
-
Vital Signs:
Vital Signs
Temp Pulse Resp BP Pulse Ox
98.1 F 66 18 130/74 97
08/03/24 07:05 08/03/24 07:05 08/03/24 07:05 08/03/24 07:05 08/03/24 08:00
I&O
08/02/24 08/03/24 08/04/24
06:59 06:59 06:59
Intake Total 2340 / 2340 1500 / 1500
Balance 2340 / 2340 1500 / 1500
Review of Systems
-
History Source: Patient
All other systems: Reviewed and negative
--- NOTE | 2024-08-03 10:45 | W.DS.TRANS ---
DC Summary - Clinical Data Abstractor
-
Discharge Instructions:
Discharge Diagnosis/Procedures Possible multiple sclerosis, uncontrolled
diabetes
Diet Diabetic, Carb Controlled
Activity As tolerated
Driving Restrictions As prior to admission
Bathing Restrictions None
Instructions:
Stand-Alone Forms:
Changes to Home Medications: No
Discharge Medications:
DC Medications w/original date entered in [facility]
blood sugar diagnostic (Contour Next Test Strips) #100 ea 08/02/24
lancets 21 gauge (Color Lancets) #100 ea 08/02/24
aspirin 81 mg tablet,delayed release 81 mg PO DAILY #0 tabs 08/03/24
cyanocobalamin (vitamin B-12) 1,000 mcg tablet 1,000 mcg PO DAILY #30 tabs 08/03/24
folic acid 1 mg tablet 1 mg PO DAILY #30 tabs 08/03/24
glipizide 5 mg tablet, extended release 24 hr (Glucotrol XL) 5 mg PO DAILY #30 tabs 08/03/24
losartan 25 mg tablet 25 mg PO DAILY #30 tabs 08/03/24
thiamine HCl (vitamin B1) 100 mg tablet 100 mg PO BID #60 tabs 08/03/24
Home Medication Changes
Pending Results: No
[2024-08-03] MEDS: AFLURIA (36 mos+) 2024-2025 FORMULA 0.5 ML IM (11:09)
[2024-08-03 11:53] VITALS: BP 127/74
--- NOTE | 2024-08-03 13:28 | CM ---
Pt medically stable for d/c
No CM needs at this time
Plan: Home; no needs
[2024-08-06 18:22] LABS: Albumin Index 5.3 ratio (0.0-9.0); Albumin, CSF 24 mg/dL (0-35); Albumin, Serum 4535 mg/dL (3500-5200); CSF IgG Synthesis Rate 36.7 mg/d (<=8.0); CSF IgG/Albumin Ratio 0.46 ratio (0.09-0.25); CSF Oligoclonal Bands Positive (Negative); CSF Oligoclonal Bands Number 13 Bands (0-1); IgG 1207 mg/dL (768-1632); IgG, CSF 11.1 mg/dL (0.0-6.0)
[2024-08-06 19:09] LABS: Myelin Basic Protein, CSF 3.77 ng/mL (0.00-5.50)
[2024-08-07 00:40] LABS: CSF VDRL (T. pallidum) Non Reactive (Non Reactive)
[2024-08-07 01:33] LABS: Angiotensin-1- Converting, CSF 1.7 U/L (0.0-2.5)
== END 2024-08-03 12:13 | disposition home or self-care (01) | DRG 59 ==
LOC: 4 WEST ACU 02:13
PROVIDERS: Hospitalist; Nurse Practitioner Family; Radiology Diagnostic Radiology; Radiology Vascular & Interventional Radiology; ADMITTING PHYSICIAN Hospitalist; ATTENDING PHYSICIAN Hospitalist; CONSULT PHYSICIAN Psychiatry & Neurology Neurology; EMERGENCY PHYSICIAN Emergency Medicine
PROC: 009U3ZX Drainage of Spinal Canal, Percutaneous Approach, Diagnostic (ICD-10-PCS; 2024-08-01)
PROC: 3E02340 Introduction of Influenza Vaccine into Muscle, Percutaneous Approach (ICD-10-PCS; 2024-08-03)
DX: G35 Multiple sclerosis (principal); F10.239 Alcohol dependence with withdrawal, unspecified; E11.65 Type 2 diabetes mellitus with hyperglycemia; I10 Essential (primary) hypertension; F17.210 Nicotine dependence, cigarettes, uncomplicated; E83.42 Hypomagnesemia; E87.6 Hypokalemia; Z91.199 Patient's noncompliance with other medical treatment and regimen due to unspecified reason; Z23 Encounter for immunization; Y90.3 Blood alcohol level of 60-79 mg/100 ml
CPT/HCPCS: 62328; 70450; 70553; 72156; 72157; 80048; 80053; 80061; 80306; 82040; 82042; 82077; 82164; 82607; 82784; 82945; 82947; 82962; 83036; 83516; 83735; 83873; 83916; 84100; 84157; 84443; 84484; 85025; 85027; 85610; 85652; 86038; 86039; 86140; 86592; 86618; 87205; 88108; 89051; 90686; 93005; 96365; 96366; 97161; 97166; 99291; 99406; A9575; G0008

== ENCOUNTER 2024-11-11 13:25 | Emergency (ER) | payer OTHER, SELFPAY ==
[2024-11-11 13:26] VITALS: BP 192/111
[2024-11-11 13:29] LABS: Glucose - Point of Care 313 mg/dl (70-99)
--- NOTE | 2024-11-11 13:48 | ED.GENMED ---
History of Present Illness
General
Chief Complaint: Blood Sugar Problem
Time Seen by Provider: 11/11/24 13:31
History of Present Illness
History of Present Illness:
49-year-old female with history of kck-egfolya-iwtwnwejv diabetes and MS presents to the emergency department for evaluation of elevated blood sugars. She was admitted to this hospital in July 2024 at which time she was diagnosed with diabetes
as well as new onset MS. Due to insurance issues she has not been able to follow-up with a primary care provider or neurologist. She is not currently medicated for diabetes or hypertension. Yesterday she began having acute nausea and vomiting and
went to urgent care where she was noted to be hyperglycemic and encouraged to come to the emergency department however she declined. Her vomiting is improved today but she opted to come to the ED due to consistently high blood sugars. She denies
any fevers, chills, or sweats. No abdominal pain at this time.
Past History
Past History
ED Past Medical History: HTN, NIDDM and Other (Demyelinating plaques, low vitamin B12 level)
ED Past Surgical History: Gynecological
Social History
Tobacco: Smoker
Alcohol: Chronic alcoholic
Living: with family
Family History
Family History: Other (reviewed and non-contributory)
Review of Systems
Review of Systems
Allergies reviewed?: Yes
All Other Systems: ROS reviewed and negative except as documented in HPI and ROS
Phy Exam
Physical Exam
Physical Exam:
GEN: Well appearing, NAD, WDWN
HEENT: Oral mucosa moist, no scleral icterus
Cardiac: Regular rate and rhythm, no murmurs
Lung: No respiratory distress, no tachypnea, lungs clear to auscultation bilaterally
MSK: No gross deformity or injuries
Skin: Good color, no pallor or jaundice, no rashes
Neuro: AO x3, moves all extremities freely
Psych: Calm, cooperative
Course
Orders/Labs/Results
Orders:
Orders
11/11/24 13:44
Urinalysis Reflex To Culture Urgent
11/11/24 13:45
Lactated Ringers [Lr] 1,000 ml IV BOLUS
11/11/24 13:49
Complete Blood Count/No Diff Urgent
Comprehensive Metabolic Panel Urgent
11/11/24 14:51
Insulin Aspart [NOVOLOG vial] 7 units SC NOW STA
11/11/24 16:10
Bedside Glucose- Treatment ONCE
Abnormal Lab Results
11/11/24 11/11/24
13:27 13:49
MPV 10.6 H fL
(7.4-10.4)
Sodium 134 L mmol/L
(135-145)
Chloride 94 L mmol/L
(98-107)
Glucose 308 H mg/dl
(70-99)
ALT 59 H U/L
(0-35)
POC Glucose 313 H mg/dl
(70-99)
11/11/24 13:49
11/11/24 13:49
Vital Signs
Initial and Last Documented VS:
Initial Vital Signs
Temp Pulse Resp BP Pulse Ox
98.8 F 86 18 192/111 99
11/11/24 13:26 11/11/24 13:26 11/11/24 13:26 11/11/24 13:26 11/11/24 13:26
Last Documented Vital Signs
Temp Pulse Resp BP Pulse Ox
98.8 F 75 17 159/90 100
11/11/24 13:26 11/11/24 14:47 11/11/24 14:47 11/11/24 14:47 11/11/24 14:47
MDM/Problems Addressed
MDM/Problems Addressed:
49-year-old female presents due to hyperglycemia. She was diagnosed with diabetes in July with elevated hemoglobin A1c however has not been medicated due to insurance limitations. Blood sugars elevated again in the ED however no evidence of
DKA or significant electrolyte derangements. She also has uncontrolled hypertension. Will reinitiate her medications that she was planned to start after discharge several months ago, recommend primary care and outpatient neurology follow-up
*Critical Care Note
Total Time (30-74mins, 75-104mins- exclusive of procedures): Not Applicable
ED Attending Note
-
Portions of this chart may have been created with voice recognition software.� Occasional wrong word or��sound alike� substitutions may have occurred due to the inherent limitations of voice recognition software.
Discharge Plan
Departure
Discharge Problem:
Uncontrolled diabetes mellitus, Uncontrolled hypertension
Instructions: Type 2 diabetes - Discharge instructions
Prescriptions:
New
glipizide [Glucotrol XL] 5 mg tablet extended release 24hr
5 mg PO DAILY Qty: 30 2RF
losartan 25 mg tablet
25 mg PO DAILY Qty: 30 2RF
Discontinued
losartan 25 mg Tablet
25 mg PO DAILY Qty: 30 0RF
glipizide [Glucotrol XL] 5 mg tablet extended release 24hr
5 mg PO DAILY Qty: 30 0RF
No Action
(DME) Contour Next Test Strips Strip
Qty: 100 0RF
Rx Instructions:
Test blood sugar BID as directed fasting and 2 hours after a meal.As Directed
E11.65
(DME) lancets [Color Lancets] 21 gauge Misc
Qty: 100 0RF
Rx Instructions:
Test blood sugar BID as directed fasting and 2 hours after a meal.As Directed
E11.65
cyanocobalamin (vitamin B-12) 1,000 mcg Tablet
1,000 mcg PO DAILY Qty: 30 0RF
thiamine HCl (vitamin B1) 100 mg Tablet
100 mg PO BID Qty: 60 0RF
aspirin 81 mg Tablet,Delayed Release (Dr/Ec)
81 mg PO DAILY Qty: 0 0RF
folic acid 1 mg Tablet
1 mg PO DAILY Qty: 30 0RF
Referrals:
NONE,* [Family Provider] -
Stand Alone Forms: Return to Work
Activity Restrictions/Additional Instructions:
If you cannot get regular follow-up appointments with your current primary care physician please consider following up with [facility]
[address]
[place] [address]
[phone]
Your neurologic workup during her last hospital stay was diagnostic for multiple sclerosis. Please follow-up with neurology as we discussed
[facility] [place]
[address]
[place] [address]
Begin the medications I prescribed for you as soon as possible
Interventions
Interventions:
*Risk Screen - Suicide Last Done: 11/11/24 13:26
*General Assessment Last Done: 11/11/24 13:26
*Neglect/Abuse Screening Last Done: 11/11/24 13:26
*ED COVID-19 Vaccine History Last Done: 11/11/24 13:26
ED- Neurological Assessment Last Done: 11/11/24 13:57
Discharge Date and Time
Print Language: ROMANIAN
[2024-11-11] MEDS: LR 1000 IV (13:55)
[2024-11-11 13:57] LABS: Hematocrit 43.1 % (37.0-47.0); Hemoglobin 14.4 g/dL (12.0-16.0); Mean Corp Hgb Conc. 33.4 g/dL (33.0-37.0); Mean Corpuscular Hgb 29.1 pg (27.0-31.0); Mean Corpuscular Volume 87.2 fL (81.0-99.0); Mean Platelet Volume 10.6 fL (7.4-10.4); Platelet Count 188 10^3/uL (130-400); Red Blood Cell Count 4.94 10^6/uL (4.20-5.40); Red Cell Dist. Width 13.5 % (11.5-14.5); White Blood Cell Count 7.7 10^3/uL (4.8-10.8)
[2024-11-11 14:12] LABS: ALT (SGPT) 59 U/L (0-35); AST (SGOT) 35 U/L (14-36); Albumin 4.8 g/dl (3.5-5.0); Alkaline Phosphatase 107 U/L (38-126); Blood Urea Nitrogen 13 mg/dl (7-17); Calcium 8.9 mg/dl (8.4-10.2); Carbon Dioxide 27 mmol/L (22-30); Chloride 94 mmol/L (98-107); Glucose 308 mg/dl (70-99); Potassium 3.8 mmol/L (3.5-5.1); Sodium 134 mmol/L (135-145); Total Bilirubin 1.1 mg/dl (0.2-1.3); Total Protein 7.8 g/dl (6.3-8.2); eGFR > 60.00
[2024-11-11 14:47] VITALS: BP 159/90; BMI 28.6
[2024-11-11 15:00] VITALS: BP 152/80
[2024-11-11] MEDS: NOVOLOG vial 7 UNITS SC (15:14)
[2024-11-11 16:33] LABS: Glucose - Point of Care 196 mg/dl (70-99)
[2024-11-11 16:47] VITALS: BP 135/80
[2024-11-11] MEDS: GLUCOTROL XL (EXTENDED RELEASE) 5 MG PO (17:10)
== END 2024-11-11 17:24 | disposition home or self-care (01) ==
LOC: EMR 13:25
PROVIDERS: Physician Assistant; EMERGENCY PHYSICIAN Emergency Medicine
DX: E11.65 Type 2 diabetes mellitus with hyperglycemia (principal); I10 Essential (primary) hypertension; F17.200 Nicotine dependence, unspecified, uncomplicated; Z59.71 Insufficient health insurance coverage
CPT/HCPCS: 96372; 96360; 99284; 80053; 82962; 85027